=== PATIENT | male | born 1950 | race Caucasian/White ===

== ENCOUNTER 2022-10-14 09:35 | Inpatient (IN) ==
--- NOTE | 2022-10-14 09:53 | Emergency Department Note ---
HPI General Chief complaint: Shortness of Breath/Dyspnea Time Seen by Provider: 10/14/22 09:53 Source: patient and family Mode of arrival: wheelchair Limitations: no limitations History of Present Illness HPI Narrative: Narrative: Patient is a 72-year-old male with a complex history, but importantly history of DVT, CAD, ANJEL, hypertension, hyperlipidemia, and emphysema who presents to the emergency department due to shortness of breath. Patient endorses symptoms for approximately 1 week. He has been treated for infection of unknown location for this period of time. He states that he has had runny nose, productive cough, and nausea. He does endorse some abdominal pain that has worsened during this period of time. He states that this is mostly in the left lower part of his abdomen. He denies radiation of the pain. He denies palliative or provocative factors. He denies fevers, chills, or any other symptoms at this time. Related Data Home Medications Medication Instructions Recorded Confirmed omega [id number] oil 1,000 mg 1 cap PO QDAY 01/10/20 10/14/22 (120 mg-180 mg) capsule (Fish Oil) red yeast rice 600 mg capsule 600 mg PO QDAY 01/10/20 10/14/22 aspirin 81 mg tablet,delayed 81 mg PO QDAY 06/04/21 10/14/22 release spironolactone 25 mg tablet 25 mg PO QDAY 12/30/21 10/14/22 diltiazem HCl 120 mg capsule,24 120 mg PO QDAY 02/17/22 10/14/22 hr,extended release cilostazol 50 mg tablet 50 mg PO BID 10/07/22 10/14/22 acetaminophen 325 mg tablet 650 mg PO Q4H PRN Pain 10/14/22 10/14/22 amiodarone 200 mg tablet 1 tab PO QDAY 10/14/22 10/14/22 diltiazem HCl 30 mg tablet 30 mg PO Q4HP PRN Tachycardia 10/14/22 10/14/22 hydrocodone 10 mg-acetaminophen 1 tab PO Q6H PRN Pain 10/14/22 10/14/22 325 mg tablet ibuprofen 200 mg capsule 800 mg PO Q8H PRN Pain 10/14/22 10/14/22 Previous Rx's Medication Instructions Recorded Nocturnal Oxygen #1 ea 03/17/21 nitroglycerin 0.4 mg sublingual 0.4 mg sublingual Q5-15M PRN chest 01/05/22 tablet pain #25 tabs hydralazine 100 mg tablet 100 mg PO BID #180 tabs 02/17/22 lisinopril 5 mg tablet 5 mg PO QDAY #90 tabs 10/02/22 omeprazole 20 mg capsule,delayed 20 mg PO BID #60 caps 10/02/22 release sulfamethoxazole 800 1 tab PO BID #14 tabs 10/07/22 mg-trimethoprim 160 mg tablet (Bactrim DS) Allergies Allergy/AdvReac Type Severity Reaction Status Date / Time clopidogrel [From Plavix] Allergy Severe Anaphylaxis Verified 10/14/22 07:49 ticagrelor [From Brilinta] Allergy Severe Swelling Verified 10/14/22 20:31 of Lip/Tongue/Throat carbamazepine Allergy Unknown Unknown Verified 10/14/22 07:49 escitalopram Allergy Unknown Unknown Verified 10/14/22 14:06 isosorbide Allergy Unknown Unknown Verified 10/14/22 14:06 lovastatin Allergy Unknown Unknown Verified 10/14/22 14:06 metoclopramide Allergy Unknown Unknown Verified 10/14/22 14:06 rosuvastatin Allergy Unknown Unknown Verified 10/14/22 14:06 simvastatin Allergy Unknown Unknown Verified 10/14/22 14:06 Review of Systems ROS ROS Narrative: Narrative: Constitutional: Denies fever or weakness Eyes: Denies eye pain or vision change ENT ED: Reports rhinorrhea; Denies throat pain or hearing loss Cardiovascular: Denies chest pain, dyspnea on exertion, orthopnea or edema Respiratory: Reports shortness of breath and cough Gastrointestinal: Reports abdominal pain and nausea; Denies vomiting, diarrhea, constipation, hematochezia or melena Genitourinary: Denies dysuria, frequency or hematuria Musculoskeletal: Reports other (Left leg pain); Denies back pain or myalgia Integumentary: Denies rash or lesions Neurological: Denies headache, weakness, numbness, confusion, abnormal gait or dizziness Endocrine: Denies fatigue or polyuria Hematological/Lymphatic: Denies easy bleeding or easy bruising [facility] Narrative Patient History Narrative: Narrative: Medical/Surgical/Family History All Active Problems (Updated 10/16/22 @ 10:39 by Anam He MD) S/P cholecystectomy (Chronic) History of surgery (Chronic) Elevated PSA (Chronic) Hypertension (Chronic) Prostate carcinoma (Chronic ~2004) Gout (Chronic) Hyperlipidemia (Chronic) CAD (coronary artery disease) of bypass graft (Chronic) 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) Skin lesion of face (Chronic) Atherosclerosis (Chronic) Foot pain (Chronic) PVD (peripheral vascular disease) (Chronic) Esophageal reflux (Chronic) PSVT (paroxysmal supraventricular tachycardia) (Chronic) Renovascular hypertension (Chronic) Obesity (Chronic) Myalgia (Chronic) Lactose intolerance (Chronic) Stroke (Chronic ~01/1994) Renal artery stenosis (Chronic) Chronic constipation (Chronic) Tendinitis (Chronic) Erectile dysfunction (Chronic) Myocardial infarction (Chronic ~1991) Bruises easily (Chronic) Bleeds easily (Chronic) Hx of CABG (Chronic) Hx of angioplasty (Chronic) Calcified pleural plaque on chest x-ray (Chronic) Hepatic cyst (Chronic) Atelectasis of both lungs (Chronic) Renal cyst (Chronic) ANJEL (obstructive sleep apnea) (Chronic) Hypoxia (Chronic) Hypersomnia (Chronic) Snoring (Chronic) Witnessed apneic spells (Chronic) Nocturnal hypoxia (Chronic) Right carotid bruit (Chronic) Cervical disc disorder with radiculopathy, high cervical region (Chronic) Obstructive sleep apnea (Chronic) Encounter for long-term (current) use of medications (Chronic) Abdominal pain, RUQ (right upper quadrant) (Chronic) DDD (degenerative disc disease), lumbar (Chronic) Orthostatic hypotension (Chronic) Low back pain (Chronic) Radiculopathy, lumbar region (Chronic) Chronic pain (Chronic) DVT (deep venous thrombosis) (Chronic) Abrasion, left lower leg, initial encounter (Chronic) Prerenal azotemia (Chronic) Other intervertebral disc degeneration, lumbar region (Chronic) Chest pain (Chronic) Frequent PVCs (Chronic) Acute coronary syndrome with high troponin (Chronic) S/P coronary artery stent placement (Chronic) History of left heart catheterization (Chronic 11/02/20) Spondylosis without myelopathy or radiculopathy, lumbar region (Chronic) Spondylosis without myelopathy or radiculopathy, lumbosacral region (Chronic) Medicare annual wellness visit, subsequent (Chronic) Dizziness (Chronic) Chest pain (Chronic) Abdominal pain (Chronic) Left leg pain (Chronic) Sacroiliitis (Chronic) Chronic SI joint pain (Acute) Pneumonia of both lower lobes (Acute) GERD with esophagitis (Acute) Skin tear (Acute) Chronic SI joint pain (Chronic) Bilateral sacroiliitis (Acute) Fatigue (Acute) Nausea (Acute) Cough (Acute) Function kidney decreased (Acute) Peripheral arterial disease (Acute) Constipation (Acute) Sacrococcygeal disorders, not elsewhere classified (Chronic) Myofascial pain syndrome (Chronic) Constipation (Acute) Elevated WBC count (Acute) Bronchitis (Acute) CESILIA (acute kidney injury) (Acute) Hyperkalemia (Acute) Chronic diastolic (congestive) heart failure (Acute) CKD (chronic kidney disease) stage 3, GFR 30-59 ml/min (Acute) [id number] renal failure (Acute) Drug-induced hyperkalemia (Acute) Hyponatremia (Acute) Pulmonary interstitial fibrosis (Acute) CESILIA (acute kidney injury) (Acute) Acute hyperkalemia (Acute) Medical History Abdominal pain Abdominal pain, RUQ (right upper quadrant) Abrasion, left lower leg, initial encounter Acute coronary syndrome with high troponin Atelectasis of both lungs Atherosclerosis Bilateral sacroiliitis Bleeds easily Bruises easily CAD (coronary artery disease) of bypass graft Calcified pleural plaque on chest x-ray Cervical disc disorder with radiculopathy, high cervical region Chest pain Chronic constipation Chronic pain Chronic SI joint pain Chronic SI joint pain DDD (degenerative disc disease), lumbar Dizziness DVT (deep venous thrombosis) Elevated PSA Encounter for long-term (current) use of medications Erectile dysfunction Esophageal reflux Foot pain Frequent PVCs Function kidney decreased Gout Hepatic cyst Hyperlipidemia Hypersomnia Hypertension Hypoxia Lactose intolerance Left leg pain Low back pain Medicare annual wellness visit, subsequent Myalgia Myocardial infarction (~1991) 1991, 1992, 1994, 2004 Myofascial pain syndrome Nocturnal hypoxia Obesity Obstructive sleep apnea Orthostatic hypotension ANJEL (obstructive sleep apnea) Other intervertebral disc degeneration, lumbar region Other assistant terminal manager (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 Prerenal azotemia Prostate carcinoma (~2004) PSVT (paroxysmal supraventricular tachycardia) PVD (peripheral vascular disease) Radiculopathy, lumbar region Renal artery stenosis Renal cyst Renovascular hypertension Right carotid bruit Sacrococcygeal disorders, not elsewhere classified Sacroiliitis Skin lesion of face Snoring Spondylosis without myelopathy or radiculopathy, lumbar region Spondylosis without myelopathy or radiculopathy, lumbosacral region Stroke (~01/1994) 1994 Tendinitis Witnessed apneic spells Surgical History History of esophagogastroduodenoscopy (EGD) (02/05/22) History of left heart catheterization (11/02/20) 11/12/21 History of prostate surgery (~10/2004) radioactive seed implantation, brachytherapy History of quadruple bypass History of renal stent History of surgery heart Hx of angioplasty Hx of CABG 5 heart attacks S/P cholecystectomy S/P coronary artery stent placement Family History Mother , Age 84 Diabetes Hypertension Arthritis Grandmother Diabetes Arthritis maternal Father , Age 77 Hypertension Cancer Metastatic bone cancer Brother Hypertension Cancer Grandfather Hypertension maternal Heart disease maternal Heart attack Maternal. Family/Other Cancer Maternal aunt. Heart attack Maternal aunt. Stroke Maternal aunt. Sister Suicide Social History Smoking Status: Former smoker and Never smoker Alcohol Intake Frequency: does not drink Substance Use: does not use Exam Narrative Narrative: Narrative: General Limitations: no limitations General appearance: Present alert and in no apparent distress; Absent anxious, appears intoxicated or sleepy Head Head: Present atraumatic and normocephalic Eye Eye: Present PERRL, EOMI and visual valenzuela intact; Absent scleral icterus or nystagmus ENT ENT: Present mucous membranes moist; Absent nasal congestion Neck Neck: Present full ROM; Absent tenderness Chest Chest: Present normal inspection and symmetric chest wall rise; Absent t enderness Respiratory Respiratory: Present normal lung sounds bilaterally; Absent respiratory distress, rales/crackles, wheezes, stridor or accessory muscle use Cardiovascular Cardiovascular: Present regular rate, normal rhythm and normal heart sounds Adbominal Abdominal: Present soft, tenderness and normal bowel sounds; Absent distention, guarding, rebound or rigidity Extremities Extremities: Present normal inspection, full ROM, tenderness, pedal edema, pretibial edema and calf tenderness Back Back: Present normal inspection and full ROM Neurological Neurological: Present alert and oriented X3 Psychiatric Psychiatric: Present normal affect and normal mood Skin Skin: Present warm (WNL), dry and normal color Course Vital Signs Vital signs: Vital Signs Temperature 96.2 F L 10/14/22 09:36 Pulse Rate 78 10/14/22 09:36 Respiratory Rate 20 10/14/22 09:36 Blood Pressure 110/52 10/14/22 09:36 Pulse Oximetry (%) 98 10/14/22 09:36 Oxygen Delivery Method 10/14/22 09:36 Temperature 98.1 F 10/16/22 08:02 Pulse Rate 86 10/16/22 10:01 Respiratory Rate 20 10/16/22 08:23 Blood Pressure 117/55 10/16/22 10:01 Pulse Oximetry (%) 93 10/16/22 10:01 Oxygen Delivery Method 10/16/22 10:01 [facility] MDM Narrative Medical decision making narrative: Narrative: Patient is a 72-year-old male with a complex history, but importantly history of DVT, CAD, ANJEL, hypertension, hyperlipidemia, and emphysema who presents to the emergency department due to shortness of breath. Differential diagnoses include exacerbation of lung disease, ACS, pneumonia, infection elsewhere including in the abdomen given his abdominal pain, DVT and PE, pancreatitis, and urinary tract infection. Patient's DVT ultrasound did demonstrate short segment thrombosis in the posterior tibial vein below the knee in the mid calf. Influenza/COVID swab was negative. Patient's CT scan demonstrates new pulmonary fibrosis. Labs are concerning for a creatinine of 3.8 with a previous of 1.8-2 and elevated potassium of 5.2. Patient's EKG is reassuring. Given patient's significant elevation in creatinine he has received fluids, but I have also spoken to Dr. Liu. He recommended discontinuation of lisinopril and Bactrim. I then spoke to Dr. Martinez who agreed to see and evaluate patient for admission. Lab Data Result diagrams: 10/15/22 10:57 10/16/22 05:12 Labs: Lab Results 10/14/22 10/14/22 10/14/22 Range/Units 09:51 09:53 09:54 WBC (4.5-11.0) K/mcL RBC (4.63-6.08) M/mcL Hgb (13.7-17.5) g/dL Hct (40.1-51.0) % POC Hct 35.0 L (41-55) MCV (80.0-100.0) fL MCH (26.0-34.0) pg MCHC (31.0-36.0) g/dL RDW (11.5-14.5) % Plt Count (140-440) K/mcL MPV (8.8-12.5) fL Immature Gran % (Auto) (0.0-0.5) % Neut % (Auto) (38.0-78.0) % Lymph % (Auto) (15.5-49.0) % [place] % (Auto) (1.0-12.0) % Eos % (Auto) (0.0-7.0) % Baso % (Auto) (0.0-2.0) % Lymph # (Auto) (1.50-4.80) K/mcL [place] # (Auto) (0.10-0.90) K/mcL Eos # (Auto) (0.00-0.70) K/mcL Baso # (Auto) (0.00-0.30) K/mcL Immature Gran # (0.00-0.05) K/mcl Absolute Neutrophils (1.80-8.00) K/mcL POC Sodium 129 L (133-145) POC Potassium 6.0 H* (3.3-5.1) Potassium TNP POC Chloride 102 (96-108) POC Total CO2 24.0 (22-30) POC BUN 55 H (6-20) POC Creatinine 3.8 H (0.6-1.2) POC Glucose 134 H (70-105) POC WB Ioniz Calcium 1.17 (1.16-1.32) Total Bilirubin (0.1-1.0) mg/dL Direct Bilirubin (0-0.3) mg/dL AST (<40) U/L ALT (<40) U/L Alkaline Phosphatase (39-117) U/L NT-Pro-B Natriuret Pep (<125.0) pg/mL Total Protein (5.9-8.4) gm/dL Albumin (3.2-5.2) gm/dL Globulin (2.2-3.7) gm/dL Lipase (7-60) U/L POC Troponin I 0.03 (0.00-0.08) 10/14/22 10/14/22 10/14/22 Range/Units 10:03 11:22 13:14 WBC 10.2 (4.5-11.0) K/mcL RBC 3.92 L (4.63-6.08) M/mcL Hgb 11.4 L (13.7-17.5) g/dL Hct 35.1 L (40.1-51.0) % POC Hct (41-55) MCV 89.5 (80.0-100.0) fL MCH 29.1 (26.0-34.0) pg MCHC 32.5 (31.0-36.0) g/dL RDW 12.7 (11.5-14.5) % Plt Count 380 (140-440) K/mcL MPV 9.7 (8.8-12.5) fL Immature Gran % (Auto) 0.5 (0.0-0.5) % Neut % (Auto) 60.9 (38.0-78.0) % Lymph % (Auto) 24.9 (15.5-49.0) % [place] % (Auto) 9.7 (1.0-12.0) % Eos % (Auto) 3.3 (0.0-7.0) % Baso % (Auto) 0.7 (0.0-2.0) % Lymph # (Auto) 2.54 (1.50-4.80) K/mcL [place] # (Auto) 0.99 H (0.10-0.90) K/mcL Eos # (Auto) 0.34 (0.00-0.70) K/mcL Baso # (Auto) 0.07 (0.00-0.30) K/mcL Immature Gran # 0.05 (0.00-0.05) K/mcl Absolute Neutrophils 6.21 (1.80-8.00) K/mcL POC Sodium (133-145) POC Potassium (3.3-5.1) Potassium 5.2 H POC Chloride (96-108) POC Total CO2 (22-30) POC BUN (6-20) POC Creatinine (0.6-1.2) POC Glucose (70-105) POC WB Ioniz Calcium (1.16-1.32) Total Bilirubin 0.3 (0.1-1.0) mg/dL Direct Bilirubin < 0.2 (0-0.3) mg/dL AST 16 (<40) U/L ALT 10 (<40) U/L Alkaline Phosphatase 78 (39-117) U/L NT-Pro-B Natriuret Pep 1168.0 H 1309.0 H (<125.0) pg/mL Total Protein 6.0 (5.9-8.4) gm/dL Albumin 3.7 (3.2-5.2) gm/dL Globulin 2.3 (2.2-3.7) gm/dL Lipase 12 (7-60) U/L POC Troponin I (0.00-0.08) ED POC Tests ED POC Tests: TRISTIN - Influenza A Negative TRISTIN - Influenza B Negative TRISTIN - SARS Antigen Negative EKG Data EKG #1: EKG attestation: Yes I reviewed and interpreted this EKG. EKG results narrative: Normal sinus rhythm with a rate of 83, borderline right axis, DC of 80, QRS of 175, QTC of 596, T wave flattening in aVF, and absence of ST elevation or depression. Discharge Plan Patient/Caregiver Discharge Instructions Pt seen by CLOUD INFRASTRUCTURE ARCHITECT/PA only: No Clinical Impression: CESILIA (acute kidney injury), Acute hyperkalemia Patient Disposition: Xfer As Inpt ([facility]) Discharge Date/Time: 10/14/22 14:40
[2022-10-14 09:58] LABS: POC Calcium, Ionized 1.17 (1.16-1.32); POC Creatinine 3.8 (0.6-1.2)
--- NOTE | 2022-10-14 10:29 | XRay Report ---
HISTORY: Dyspnea FINDINGS: Patient has mild pulmonary fibrosis in both lung bases. There is a thin linear scar in the lingula. The mid and upper lung valenzuela are clear. Lung volumes are normal, without evidence of air trapping. There is no pneumonia, mass or congestive heart failure. The heart size is normal. There has been a prior sternotomy and coronary bypass surgery. Comparison with the prior chest x-ray on 12/15/[address] on 09/27/21 shows no significant change. IMPRESSION: Mild pulmonary fibrosis and no acute abnormality Interpreted and Authenticated by: Jose L Lawton 10/14/22
[2022-10-14 10:36] LABS: Basophils # (Auto) 0.07 K/mcL (0.00-0.30); Basophils % (Auto) 0.7 % (0.0-2.0); Eosinophils # (Auto) 0.34 K/mcL (0.00-0.70); Eosinophils % (Auto) 3.3 % (0.0-7.0); Hematocrit 35.1 % (40.1-51.0); Hemoglobin 11.4 g/dL (13.7-17.5); Lymphocytes # (Auto) 2.54 K/mcL (1.50-4.80); Lymphocytes % (Auto) 24.9 % (15.5-49.0); Mean Cell Volume 89.5 fL (80.0-100.0); Mean Corpuscular HGB Conc 32.5 g/dL (31.0-36.0); Mean Platelet Volume 9.7 fL (8.8-12.5); Monocytes # (Auto) 0.99 K/mcL (0.10-0.90); Monocytes % (Auto) 9.7 % (1.0-12.0); Neutrophils % (Auto) 60.9 % (38.0-78.0); Platelet Count 380 K/mcL (140-440); RBC 3.92 M/mcL (4.63-6.08); Red Cell Distribution Width 12.7 % (11.5-14.5); WBC 10.2 K/mcL (4.5-11.0)
--- NOTE | 2022-10-14 11:28 | Cat Scan Report ---
History: Short of breath, left lower quadrant pain and tenderness, prostate cancer, prior coronary bypass surgery TECHNIQUE: The patient was imaged without contrast in axial plane at 2.5 mm intervals from above the thoracic inlet through the symphysis pubis. Sagittal and coronal reformats were created along with axial MIPS images of the chest. Radiation exposure was limited using dose reduction technology. FINDINGS: CHEST: Patient has developed pulmonary fibrosis throughout both lungs with the greatest involvement in the lower lobes. This is a new finding since 04/08/20. There is mild honeycombing in a subpleural distribution. Small zone of groundglass alveolar opacification is present in the posterior basal segment left lower lobe. There is no lobar consolidation. There are several small granulomata, many of them are calcified. These were seen on the prior CT. There is no evidence of a lung mass. The trachea and bronchi are normal without evidence of bronchiectasis or bronchial wall thickening. There is been a prior sternotomy with coronary bypass surgery. Heart size is within upper limits of normal. No pleural effusions present. There are no abnormally enlarged lymph nodes. Abdomen and pelvis: There are multiple cysts throughout the liver. The largest is located posteriorly in segment five. This extends exophytically and presses upon the right kidney. It measures 10 x 11 cm. There are couple small calcifications along the wall of this dominant cyst. The other cysts are simple cysts with no calcifications or mural nodules. The cysts are chronic stable finding with little growth since 04/08/20. The spleen is normal in size and homogeneous. There is an accessory spleen in the hilar region. No abnormality seen within the pancreas. The adrenals are normal. There are multiple cysts in both kidneys, left greater than right. There is an exophytic well-circumscribed 3.5 x 3.8 cm mass arising from the upper pole the right kidney. It has a density of 38 Hounsfield units. This has not enlarged since the prior CT on 04/08/20 and is probably a complex cyst containing proteinaceous debris. No new or suspicious mass of developed in either kidney. There is loss of renal parenchyma bilaterally, left greater than right. Nonobstructing 5 mm calculus is present posteriorly in the middle third of left kidney. No hydronephrosis is present. There is a stent in the left renal artery and a large amount calcified plaque at the origin of the right renal artery. Severe atherosclerotic disease is present throughout the abdomen or pelvis. The aorta is normal in caliber with no aneurysm. There is a large amount of fecal material throughout the large intestine. The bowel is not abnormally dilated. Small intestine is normal in caliber and noninflamed. There are fiducial markers in the prostate following prior radiation therapy. Prostate is normal in size and there is no discrete mass. There are couple calcifications in the transitional zone. Seminal vesicles are atrophic. Urinary bladder is decompressed and grossly normal. Bone windows show no lytic or blastic metastasis. There is arthritis at multiple levels in the thoracic and lumbar spine. IMPRESSION: 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 This may be due to UIP (usual interstitial pneumonia) or collagen vascular disease. Old granulomatous disease. No evidence of pneumonia or lung mass Stable hepatic and renal cysts No acute abnormality in the abdomen or pelvis No evidence of metastasis of the patient's prostate cancer Interpreted and Authenticated by: Jose L Lawton 10/14/22
--- NOTE | 2022-10-14 11:45 | Ultrasound Report ---
History: Left lower leg pain and swelling findings: There is normal augmentation and compressibility of the deep veins from the groin through the popliteal fossa. The greater saphenous vein is patent. There is a short segment thrombosis of one of the two paired posterior tibial veins in the mid calf. The remainder of this vessel is clear. The adjacent posterior tibial vein is normal. The peroneal veins are normal. In the popliteal fossa there is a 1.4 x 4.1 x 4.4 cm Corona cyst. This is noninflamed. IMPRESSION: Short segment thrombosis of one of two paired posterior tibial veins in the mid calf. No evidence of thrombosis at or above the level of the knee. Interpreted and Authenticated by: Jose L Lawton 10/14/22
[2022-10-14 12:23] LABS: ALT/SGPT 10 U/L (<40); AST/SGOT 16 U/L (<40); Albumin 3.7 gm/dL (3.2-5.2); Alkaline Phosphatase 78 U/L (39-117); Bilirubin,Direct < 0.2 mg/dL (0-0.3); Bilirubin,Total 0.3 mg/dL (0.1-1.0); Globulin 2.3 gm/dL (2.2-3.7)
[2022-10-14] MEDS ORDERED: 0.9 % SODIUM CHLORIDE 1,000 ML IV ONE (12:43)
[2022-10-14] MEDS ORDERED: HYDROCODONE/APAP 7.5/325MG TABLET PO ONE (13:07)
[2022-10-14] MEDS ORDERED: DILTIAZEM 30 MG TABLET PO PRN (13:48)
[2022-10-14] MEDS ORDERED: ONDANSETRON 4 MG/2 ML VIAL IV PRN (14:47)
[2022-10-14] MEDS ORDERED: SENNOSIDES 1 TABLET PO PRN (14:47)
[2022-10-14] MEDS ORDERED: ACETAMINOPHEN 325 MG TABLET PO PRN (14:47)
[2022-10-14] MEDS ORDERED: FUROSEMIDE 40 MG/4 ML VIAL IV ONE (14:47)
--- NOTE | 2022-10-14 15:26 | Internal Med History&Physical ---
HPI History of Present Illness Patient information: Note initiated : 10/14/22 at 3:19 pm Service Date, if different from initiated Date: [] Patient: Wilbert Gregg a 72 y/o M admitted on 10/14/22 for n/a. Chief Complaint: [SOB] Chief complaint: Dyspnea History of present illness: Mr. Gregg is a 72 year old M w/ a complex PMHx significant for chronic AF, CAD, HFpEF, CVA, COPD and lumbar radiculopathy s/p fusion who presents to the hospital w/ progressive dyspnea. The patient states that he was seen twice by [facility]MISS[facility] RN at urgent care/clinic last week. First time, he was dx with UTI and prescribed bactrim. The 2nd time, he was diagnosed with bronchitis. The patient was seen by his manufacturing worker recently as well. He states that normally he is able to walk about 4 miles, and lately he was very SOB after 2 miles. He states his weight has come down from 220lbs to 206lbs. He denies fevers, chills, or any sick contacts. On arrival the patient was HD stable and afebrile. His labs were concerning for CESILIA with Cr of 3.6, K of 6.0. His CT chest also revealed diffuse GGOs. Venous duplex revealed below the knee DVT. The patient was not requiring supplemental O2. Nephrology was contacted. The hospitalist service was asked to admit the patient for further mx and evaluation. Review of Systems All systems: reviewed and no additional remarkable complaints except as stated Constitutional Constitutional: Present as per HPI EENT Eyes: Present as per HPI; Absent blurry vision Cardiovascular Cardiovascular: Present as per HPI; Absent chest pain, dyspnea, dyspnea on exertion, leg edema or palpatations Respiratory Respiratory: Present as per HPI; Absent cough, dyspnea, dyspnea on exertion, wheezing or stridor Gastrointestinal Gastrointestinal: Present as per HPI; Absent abdominal pain, diarrhea, dysphagia, hematemesis, melena, nausea or vomiting Musculoskeletal Musculoskeletal: Present as per HPI; Absent joint swelling, limited range of motion, muscle cramps, muscle weakness or myalgias Integumentary Integumentary: Present as per HPI; Absent erythema, new lesions, rash or wounds Neurological Neurological: Present as per HPI; Absent abnormal gait, behavioral changes, focal weakness, headache(s), loss of vision, numbness, sensory deficit or syncope Endocrine Endocrine: Absent change in body appearance, fatigue or heat intolerance Hematologic/Lymphatic Hematologic/Lymphatic: Present as per HPI PFSH PFSH All Active Problems Chronic diastolic (congestive) heart failure (Acute) Hyperkalemia (Acute) CESILIA (acute kidney injury) (Acute) Bronchitis (Acute) Elevated WBC count (Acute) Constipation (Acute) Myofascial pain syndrome (Chronic) Sacrococcygeal disorders, not elsewhere classified (Chronic) Hepatic cyst (Chronic) Spondylosis without myelopathy or radiculopathy, lumbosacral region (Chronic) Peripheral arterial disease (Acute) Constipation (Acute) Function kidney decreased (Acute) Cough (Acute) Nausea (Acute) Fatigue (Acute) Bilateral sacroiliitis (Acute) Chronic SI joint pain (Chronic) Skin tear (Acute) GERD with esophagitis (Acute) Pneumonia of both lower lobes (Acute) Chronic SI joint pain (Acute) Sacroiliitis (Chronic) Left leg pain (Chronic) Orthostatic hypotension (Chronic) DVT (deep venous thrombosis) (Chronic) Abrasion, left lower leg, initial encounter (Chronic) Chest pain (Chronic) Frequent PVCs (Chronic) Prerenal azotemia (Chronic) S/P coronary artery stent placement (Chronic) Acute coronary syndrome with high troponin (Chronic) Spondylosis without myelopathy or radiculopathy, lumbar region (Chronic) Medicare annual wellness visit, subsequent (Chronic) Dizziness (Chronic) Abdominal pain (Chronic) Chest pain (Chronic) Hypertension (Chronic) Encounter for long-term (current) use of medications (Chronic) Other intervertebral disc degeneration, lumbar region (Chronic) History of left heart catheterization (Chronic 11/02/20) Chronic pain (Chronic) Radiculopathy, lumbar region (Chronic) Low back pain (Chronic) DDD (degenerative disc disease), lumbar (Chronic) Abdominal pain, RUQ (right upper quadrant) (Chronic) Obstructive sleep apnea (Chronic) Cervical disc disorder with radiculopathy, high cervical region (Chronic) Right carotid bruit (Chronic) Nocturnal hypoxia (Chronic) Witnessed apneic spells (Chronic) Snoring (Chronic) Hypersomnia (Chronic) Hypoxia (Chronic) ANJEL (obstructive sleep apnea) (Chronic) Renal cyst (Chronic) Atelectasis of both lungs (Chronic) Calcified pleural plaque on chest x-ray (Chronic) Hx of angioplasty (Chronic) Hx of CABG (Chronic) Bleeds easily (Chronic) Bruises easily (Chronic) Myocardial infarction (Chronic ~1991) Erectile dysfunction (Chronic) Tendinitis (Chronic) Chronic constipation (Chronic) Renal artery stenosis (Chronic) Stroke (Chronic ~01/1994) Lactose intolerance (Chronic) Myalgia (Chronic) Obesity (Chronic) Renovascular hypertension (Chronic) PSVT (paroxysmal supraventricular tachycardia) (Chronic) Esophageal reflux (Chronic) PVD (peripheral vascular disease) (Chronic) Foot pain (Chronic) Atherosclerosis (Chronic) Skin lesion of face (Chronic) 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 terminal supervisor (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 (Chronic) CAD (coronary artery disease) of bypass graft (Chronic) Hyperlipidemia (Chronic) Gout (Chronic) Prostate carcinoma (Chronic ~2004) Elevated PSA (Chronic) History of surgery (Chronic) S/P cholecystectomy (Chronic) Medical History Abdominal pain Abdominal pain, RUQ (right upper quadrant) Abrasion, left lower leg, initial encounter Acute coronary syndrome with high troponin Atelectasis of both lungs Atherosclerosis Bilateral sacroiliitis Bleeds easily Bruises easily CAD (coronary artery disease) of bypass graft Calcified pleural plaque on chest x-ray Cervical disc disorder with radiculopathy, high cervical region Chest pain Chronic constipation Chronic pain Chronic SI joint pain Chronic SI joint pain DDD (degenerative disc disease), lumbar Dizziness DVT (deep venous thrombosis) Elevated PSA Encounter for long-term (current) use of medications Erectile dysfunction Esophageal reflux Foot pain Frequent PVCs Function kidney decreased Gout Hepatic cyst Hyperlipidemia Hypersomnia Hypertension Hypoxia Lactose intolerance Left leg pain Low back pain Medicare annual wellness visit, subsequent Myalgia Myocardial infarction (~1991) 1991, 1992, 1994, 2004 Myofascial pain syndrome Nocturnal hypoxia Obesity Obstructive sleep apnea Orthostatic hypotension ANJEL (obstructive sleep apnea) Other intervertebral disc degeneration, lumbar region Other terminal supervisor (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 Prerenal azotemia Prostate carcinoma (~2004) PSVT (paroxysmal supraventricular tachycardia) PVD (peripheral vascular disease) Radiculopathy, lumbar region Renal artery stenosis Renal cyst Renovascular hypertension Right carotid bruit Sacrococcygeal disorders, not elsewhere classified Sacroiliitis Skin lesion of face Snoring Spondylosis without myelopathy or radiculopathy, lumbar region Spondylosis without myelopathy or radiculopathy, lumbosacral region Stroke (~01/1994) 1994 Tendinitis Witnessed apneic spells Surgical History History of esophagogastroduodenoscopy (EGD) (02/05/22) History of left heart catheterization (11/02/20) 11/12/21 History of prostate surgery (~10/2004) radioactive seed implantation, brachytherapy History of quadruple bypass History of renal stent History of surgery heart Hx of angioplasty Hx of CABG 5 heart attacks S/P cholecystectomy S/P coronary artery stent placement Family History Mother , Age 84 Diabetes Hypertension Arthritis Grandmother Diabetes Arthritis maternal Father , Age 77 Hypertension Cancer Metastatic bone cancer Brother Hypertension Cancer Grandfather Hypertension maternal Heart disease maternal Heart attack Maternal. Family/Other Cancer Maternal aunt. Heart attack Maternal aunt. Stroke Maternal aunt. 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 physical activity: walking frequency: 3-4 times per week smoking status: Former smoker and Never smoker smoking status start date: 10/04/08 smoking status stop date: 08/31/96 alcohol intake frequency: does not drink substance use type: does not use seatbelt use: always MEDS/ALLERGIES Home Medications and Allergies Home Medications Medication Instructions Recorded Confirmed Type omega 6-ggv-owd-fish oil 1,000 mg 1 cap PO QDAY 01/10/20 10/14/22 History (120 mg-180 mg) capsule (Fish Oil) red yeast rice 600 mg capsule 600 mg PO QDAY 01/10/20 10/14/22 History Nocturnal Oxygen #1 ea 12/18/20 10/14/22 Rx aspirin 81 mg tablet,delayed 81 mg PO QDAY 06/04/21 10/14/22 History release spironolactone 25 mg tablet 25 mg PO QDAY 12/30/21 10/14/22 History nitroglycerin 0.4 mg sublingual 0.4 mg sublingual Q5-15M PRN chest 01/05/22 10/14/22 Rx tablet pain #25 tabs diltiazem HCl 120 mg capsule,24 120 mg PO QDAY 02/17/22 10/14/22 History hr,extended release hydralazine 100 mg tablet 100 mg PO BID #180 tabs 02/17/22 10/14/22 Rx lisinopril 5 mg tablet 5 mg PO QDAY #90 tabs 10/02/22 10/14/22 Rx omeprazole 20 mg capsule,delayed 20 mg PO BID #60 caps 10/02/22 10/14/22 Rx release cilostazol 50 mg tablet 50 mg PO BID 10/07/22 10/14/22 History sulfamethoxazole 800 1 tab PO BID #14 tabs 10/07/22 10/14/22 Rx mg-trimethoprim 160 mg tablet (Bactrim DS) amiodarone 200 mg tablet 1 tab PO QDAY 10/14/22 10/14/22 History diltiazem HCl 30 mg tablet 30 mg PO PRN PRN chest pain 10/14/22 10/14/22 History hydrocodone 10 mg-acetaminophen 1 tab PO Q6H PRN Pain 10/14/22 10/14/22 History 325 mg tablet Allergies Allergy/AdvReac Type Severity Reaction Status Date / Time clopidogrel [From Plavix] Allergy Severe Anaphylaxis Verified 10/14/22 07:49 carbamazepine Allergy Unknown Unknown Verified 10/14/22 07:49 escitalopram Allergy Unknown Unknown Verified 10/14/22 14:06 isosorbide Allergy Unknown Unknown Verified 10/14/22 14:06 lovastatin Allergy Unknown Unknown Verified 10/14/22 14:06 metoclopramide Allergy Unknown Unknown Verified 10/14/22 14:06 rosuvastatin Allergy Unknown Unknown Verified 10/14/22 14:06 simvastatin Allergy Unknown Unknown Verified 10/14/22 14:06 EXAM Constitutional Vitals: Temp Pulse Resp BP Pulse Ox O2 Del Method 96.2 F L 69 24 H 145/58 99 10/14/22 14:46 10/14/22 14:46 10/14/22 14:46 10/14/22 14:46 10/14/22 14:46 10/14/22 09:36 General appearance: average body habitus Head Head exam: Present atraumatic, normal inspection and normocephalic Eye Eye exam: Present EOMI, normal appearance and PERRL; Absent conjunctival inject ion ENT ENT exam: Present normal exam; Absent mucous membranes dry Neck Neck exam: Present full ROM; Absent lymphadenopathy Respiratory Respiratory exam: Present normal respiratory exam and CTAB; Absent decreased breath sounds, respiratory distress or wheezes Cardiovascular Cardiovascular exam: Present normal rate and rhythm and RRR; Absent JVD GI/Abdominal GI/Abdominal exam: Present normal bowel sounds and soft; Absent diminished bowel sounds, distended, guarding, mass, rebound or tenderness Neurological Exam Neurological exam: Present alert, CN II-XII intact and oriented X3 Psychiatric Psychiatric exam: Present normal affect and normal mood Skin Skin exam: Present intact and warm; Absent erythema, pallor, petechiae or rash DATA Data Completed and Pending Labs: Labs from last 24 hours 10/14/22 10/14/22 10/14/22 13:14 11:22 10:03 WBC 10.2 RBC 3.92 L Hgb 11.4 L Hct 35.1 L POC Hct MCV 89.5 MCH 29.1 MCHC 32.5 RDW 12.7 Plt Count 380 MPV 9.7 Immature Gran % (Auto) 0.5 Neut % (Auto) 60.9 Lymph % (Auto) 24.9 Custer % (Auto) 9.7 Eos % (Auto) 3.3 Baso % (Auto) 0.7 Lymph # (Auto) 2.54 [place] # (Auto) 0.99 H Eos # (Auto) 0.34 Baso # (Auto) 0.07 Immature Gran # 0.05 Absolute Neutrophils 6.21 POC Sodium POC Potassium Potassium 5.2 H POC Chloride POC Total CO2 POC BUN POC Creatinine POC Glucose POC WB Ioniz Calcium Total Bilirubin 0.3 Direct Bilirubin < 0.2 AST 16 ALT 10 Alkaline Phosphatase 78 NT-Pro-B Natriuret Pep 1309.0 H 1168.0 H Total Protein 6.0 Albumin 3.7 Globulin 2.3 Lipase 12 POC Troponin I 10/14/22 10/14/22 10/14/22 09:54 09:53 09:51 WBC RBC Hgb Hct POC Hct 35.0 L MCV MCH MCHC RDW Plt Count MPV Immature Gran % (Auto) Neut % (Auto) Lymph % (Auto) [place] % (Auto) Eos % (Auto) Baso % (Auto) Lymph # (Auto) [place] # (Auto) Eos # (Auto) Baso # (Auto) Immature Gran # Absolute Neutrophils POC Sodium 129 L POC Potassium 6.0 H* Potassium TNP POC Chloride 102 POC Total CO2 24.0 POC BUN 55 H POC Creatinine 3.8 H POC Glucose 134 H POC WB Ioniz Calcium 1.17 Total Bilirubin Direct Bilirubin AST ALT Alkaline Phosphatase NT-Pro-B Natriuret Pep Total Protein Albumin Globulin Lipase POC Troponin I 0.03 A/P Assessment and plan (1) DVT (deep venous thrombosis): Status: Chronic Qualifiers: DVT location: lower extremity Affected thrombotic vein of extremity: popliteal Chronicity: acute Laterality: right Qualified Code(s): I82.431 - Acute embolism and thrombosis of right popliteal vein (2) ANJEL (obstructive sleep apnea): Status: Chronic (3) CAD (coronary artery disease) of bypass graft: Status: Chronic (4) CESILIA (acute kidney injury): Status: Acute (5) Hyperkalemia: Status: Acute (6) Chronic diastolic (congestive) heart failure: Status: Acute Narrative A/P Narrative: #Ground glass opacities -DDx: vasculitis vs pulmonary edema vs ILD/pulmonary fibrosis vs drug induced -Investigations: CT revealed 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 This may be due to UIP (usual interstitial pneumonia) or collagen vascular disease -Tx: would recommend holding amiodarone, trial duonebs/pulmicort + solu-medrol #HFpEF -The patient's volume status is difficult to assess given body habitus, but there may be component of CHF exacerbation given elevated JVD of 16cm -Will repeat TTE -Tx: trial lasix 40mg IV x 1 #CESILIA -multifactorial in etiology-> recent bactrim use, lisinopril, aldactone + ?cardiorenal syndrome -Will trial lasix as above -Hold nephrotoxic agents, renally dose meds #Below the knee DVT -Literature does not support anticoagulation, continue conservative tx #HyperK -Will continue to monitor -Continue telemetry #CAD -Continue ASA, patient is on red yeast extract instead of statin Time Spent With Patient Time: Total time spent is greater than 50% in coordination of care (as documented) at patient's floor/unit and/or counseling patient: Initial: Total time with patient: 75 - 90 minutes
[2022-10-14] MEDS: methylPREDNISolone SOD SUCC 125 MG/2 ML VIAL IV SCH ×2 (15:31→22:04)
[2022-10-14] MEDS: 0.9 % SODIUM CHLORIDE 10 ML SYRINGE IV SCH ×3 (15:31→22:04)
[2022-10-14] MEDS: morphine 4 MG/ML VIAL IV PRN ×2 (15:56→20:15)
--- NOTE | 2022-10-14 16:11 | EKG ---
[facility] Test Date: 2022-10-14 Pat Name: Wilbert Gregg Department: ED Room: Gender: Male Nurse Emergency: KIARRA : 1950 Requested By: Anam He Order Number: [id number] Reading MD: Carmel Mckeon D.O. Measurements Intervals [place] Rate: 83 P: 0 MT: 80 QRS: 81 QRSD: 175 T: 30 QT: 507 QTc: 596 Interpretive Statements Sinus rhythm Prolonged MT interval Right bundle branch block Inferior infarct, old Electronically Signed On 10-14-2022 16:11:29 PST by Carmel Mckeon D.O. /store/[email or web address]/[id number]
[2022-10-14 17:37] LABS: Blood Urea Nitrogen 46 mg/dL (8-23); Calcium 9.4 mg/dL (8.6-10.4); Carbon Dioxide 22 mmol/L (22-30); Chloride 98 mmol/L (96-108); Glomerular Filtration Rate 20; Glucose 99 mg/dL (70-105)
[2022-10-14] MEDS: oxyCODONE/APAP 5/325MG TABLET PO PRN ×2 (17:46→22:16)
--- NOTE | 2022-10-14 19:18 | Nephrology Consult Note ---
HPI Date of Consult Consult Date: 10/14/22 Requesting physician: Thomas Martinez Primary Care Provider: Liu Roach MD Consult Narrative Patient Information: Note initiated : 10/14/22 at 7:10 pm Service Date, if different from initiated Date: [] Patient: Wilbert Gregg 72 y/o M admitted on 10/14/22 for n/a. Chief Complaint: [] cc:: CC: Thomas Martinez MD I was called by ED physician to evaluate and manage renal failure and hyperkalemia. 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 He has a history of prostate Ca treated by Rad Rx as his cardiac status would no t permit surgical treatment. His creatinine has run between 1.5 and 2 mg/dl over the past 6 yrs. He has undergone Left ISABELLE stenting and there is calcified plaque in the right renal artery origin, renal cysts and no hydronephrosis on today's CT He presented after weeks of BYRD, SOB, cough and was recently recently restarted on amiodarone which was stopped due to dizziness. Out of concern for PNA, he was started recently on TMP/SMX. At the same time, he was treated with a RAASI and spironolactone. Out of concern for a PE, the patient had a LE doppler that was positive for small clot below the knee. While I would have a patient with a fib to be on anticoagulation, and he reports prior DVT for which he was on apixaban, so I suspecion that there was a problem with chronic NOAC therapy. 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 Finally, the chest CT demonstrates the development of honeycombing interstitial pulmonary fibrosis as well as ground glass opacities. Recent Cardiology Note (Oct 2022) Recent Med additions 10/09/2022 Serum Creatinine Serum Potassium Vital Signs Temp Pulse Pulse Resp BP BP Pulse Ox 10/14/22 18:01 80 146/53 93 10/14/22 17:46 78 143/49 92 10/14/22 17:31 78 138/43 97 10/14/22 17:16 81 145/46 94 10/14/22 17:01 86 154/76 93 10/14/22 16:47 78 144/57 94 10/14/22 16:16 76 33 H 134/54 94 10/14/22 14:40 36.3 C 76 18 155/58 100 10/14/22 16:01 36.3 C 68 19 138/39 98 10/14/22 15:46 68 24 H 132/42 98 10/14/22 15:31 67 19 136/51 97 10/14/22 15:25 69 25 H 100 10/14/22 15:16 68 21 149/48 99 10/14/22 14:54 36.3 C 70 26 H 155/58 98 10/14/22 14:01 69 24 H 145/58 99 10/14/22 13:56 69 24 H 133/59 100 10/14/22 14:46 35.7 C L 69 24 H 145/58 99 10/14/22 13:41 22 143/39 10/14/22 12:41 73 17 114/41 97 10/14/22 12:34 76 16 97 10/14/22 12:01 73 25 H 102/43 97 10/14/22 11:41 74 19 124/44 99 10/14/22 11:34 75 21 125/46 98 10/14/22 10:32 21 137/62 10/14/22 10:23 77 17 109/62 100 10/14/22 10:15 77 24 H 121/100 100 10/14/22 10:01 78 24 H 123/42 99 10/14/22 09:59 79 19 128/46 99 10/14/22 09:36 35.7 C L 78 20 110/52 98 10/15/22 03:59 Weight 96.[address] 10/14/2022 Date of Service:10/14/22 Procedure(s):US venous duplex LE LT History: Left lower leg pain and swelling findings: There is normal augmentation and compressibility of the deep veins from the groin through the popliteal fossa. The greater saphenous vein is patent. There is a short segment thrombosis of one of the two paired posterior tibial veins in the mid calf. The remainder of this vessel is clear. The adjacent posterior tibial vein is normal. The peroneal veins are normal. In the popliteal fossa there is a 1.4 x 4.1 x 4.4 cm Corona cyst. This is noninflamed. IMPRESSION: Short segment thrombosis of one of two paired posterior tibial veins in the mid calf. No evidence of thrombosis at or above the level of the knee. Summary: The patient has underlying CKD G3/G4 in the setting of ASCAD, renov ascular disease, CHF with rLVEF and was on a combination of low dose lisinopril and spironolactone. Deterioration in GFR and the development of hyperkalemia is expected with the addition of TMP/SMX as is the likely explanation for his renal and potassium abnormalities. Add to this is the use of prn Advil which would added to rapid decine in GFR and elevated K. Hyponatremia would occur in the setting of CHF and the increased water intake, common recommendations with Bactrin on the package insert and the diuretic spironolactone. I seriously doubt his SOB is due to pulmonary emboli given the new CT findings of fibrosis and GGO and the minute DVT in a calf vein of the left leg As for pulmonary fibrosis, amiodarone is high on my list and I would stop it. If there is evidence of inflammation by biomarkers or better GA scan, steroids would be indicated. The ground glass opacities represent any atypical pneumonia, albeit atypical PNA or viral (including DOLORES CV 2). Review of Systems All systems: reviewed and no additional remarkable complaints except as stated Constitutional Constitutional: Present frequent falls and weakness EENT Eyes: Present as per HPI Cardiovascular Cardiovascular: Present dyspnea on exertion, edema, irregular heart rhythm, lightheadedness, orthopnea and paroxysmal nocturnal dyspnea Respiratory Respiratory: Present cough and dyspnea Gastrointestinal Gastrointestinal: Present as per HPI Musculoskeletal Musculoskeletal: Present atrophy, back pain and radiating pain into limb Integumentary Additional comments: ecchymosis Neurological Neurological: Present dizziness and frequent falls Psychiatric Psychiatric: Present as per HPI Endocrine Endocrine: Present fatigue Hematologic/Lymphatic Hematologic/Lymphatic: Present easy bruising PFSH PFSH All Active Problems (Updated 10/14/22 @ 21:21 by Jeevan Liu MD) Hyponatremia (Acute) Drug-induced hyperkalemia (Acute) [id number] renal failure (Acute) CKD (chronic kidney disease) stage 3, GFR 30-59 ml/min (Acute) S/P cholecystectomy (Chronic) History of surgery (Chronic) Elevated PSA (Chronic) Hypertension (Chronic) Prostate carcinoma (Chronic ~2004) Gout (Chronic) Hyperlipidemia (Chronic) CAD (coronary artery disease) of bypass graft (Chronic) Other chcf (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 (Chronic) Skin lesion of face (Chronic) Atherosclerosis (Chronic) Foot pain (Chronic) PVD (peripheral vascular disease) (Chronic) Esophageal reflux (Chronic) PSVT (paroxysmal supraventricular tachycardia) (Chronic) Renovascular hypertension (Chronic) Obesity (Chronic) Myalgia (Chronic) Lactose intolerance (Chronic) Stroke (Chronic ~01/1994) Renal artery stenosis (Chronic) Chronic constipation (Chronic) Tendinitis (Chronic) Erectile dysfunction (Chronic) Myocardial infarction (Chronic ~1991) Bruises easily (Chronic) Bleeds easily (Chronic) Hx of CABG (Chronic) Hx of angioplasty (Chronic) Calcified pleural plaque on chest x-ray (Chronic) Hepatic cyst (Chronic) Atelectasis of both lungs (Chronic) Renal cyst (Chronic) ANJEL (obstructive sleep apnea) (Chronic) Hypoxia (Chronic) Hypersomnia (Chronic) Snoring (Chronic) Witnessed apneic spells (Chronic) Nocturnal hypoxia (Chronic) Right carotid bruit (Chronic) Cervical disc disorder with radiculopathy, high cervical region (Chronic) Obstructive sleep apnea (Chronic) Encounter for long-term (current) use of medications (Chronic) Abdominal pain, RUQ (right upper quadrant) (Chronic) DDD (degenerative disc disease), lumbar (Chronic) Orthostatic hypotension (Chronic) Low back pain (Chronic) Radiculopathy, lumbar region (Chronic) Chronic pain (Chronic) DVT (deep venous thrombosis) (Chronic) Abrasion, left lower leg, initial encounter (Chronic) Prerenal azotemia (Chronic) Other intervertebral disc degeneration, lumbar region (Chronic) Chest pain (Chronic) Frequent PVCs (Chronic) Acute coronary syndrome with high troponin (Chronic) S/P coronary artery stent placement (Chronic) History of left heart catheterization (Chronic 11/02/20) Spondylosis without myelopathy or radiculopathy, lumbar region (Chronic) Spondylosis without myelopathy or radiculopathy, lumbosacral region (Chronic) Medicare annual wellness visit, subsequent (Chronic) Dizziness (Chronic) Chest pain (Chronic) Abdominal pain (Chronic) Left leg pain (Chronic) Sacroiliitis (Chronic) Chronic SI joint pain (Acute) Pneumonia of both lower lobes (Acute) GERD with esophagitis (Acute) Skin tear (Acute) Chronic SI joint pain (Chronic) Bilateral sacroiliitis (Acute) Fatigue (Acute) Nausea (Acute) Cough (Acute) Function kidney decreased (Acute) Peripheral arterial disease (Acute) Constipation (Acute) Sacrococcygeal disorders, not elsewhere classified (Chronic) Myofascial pain syndrome (Chronic) Constipation (Acute) Elevated WBC count (Acute) Bronchitis (Acute) CESILIA (acute kidney injury) (Acute) Hyperkalemia (Acute) Chronic diastolic (congestive) heart failure (Acute) Medical History Abdominal pain Abdominal pain, RUQ (right upper quadrant) Abrasion, left lower leg, initial encounter Acute coronary syndrome with high troponin Atelectasis of both lungs Atherosclerosis Bilateral sacroiliitis Bleeds easily Bruises easily CAD (coronary artery disease) of bypass graft Calcified pleural plaque on chest x-ray Cervical disc disorder with radiculopathy, high cervical region Chest pain Chronic constipation Chronic pain Chronic SI joint pain Chronic SI joint pain DDD (degenerative disc disease), lumbar Dizziness DVT (deep venous thrombosis) Elevated PSA Encounter for long-term (current) use of medications Erectile dysfunction Esophageal reflux Foot pain Frequent PVCs Function kidney decreased Gout Hepatic cyst Hyperlipidemia Hypersomnia Hypertension Hypoxia Lactose intolerance Left leg pain Low back pain Medicare annual wellness visit, subsequent Myalgia Myocardial infarction (~1991) 1991, 1992, 1994, 2004 Myofascial pain syndrome Nocturnal hypoxia Obesity Obstructive sleep apnea Orthostatic hypotension ANJEL (obstructive sleep apnea) Other intervertebral disc degeneration, lumbar region 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 Prerenal azotemia Prostate carcinoma (~2004) PSVT (paroxysmal supraventricular tachycardia) PVD (peripheral vascular disease) Radiculopathy, lumbar region Renal artery stenosis Renal cyst Renovascular hypertension Right carotid bruit Sacrococcygeal disorders, not elsewhere classified Sacroiliitis Skin lesion of face Snoring Spondylosis without myelopathy or radiculopathy, lumbar region Spondylosis without myelopathy or radiculopathy, lumbosacral region Stroke (~01/1994) 1994 Tendinitis Witnessed apneic spells Surgical History History of esophagogastroduodenoscopy (EGD) (02/05/22) History of left heart catheterization (11/02/20) 11/12/21 History of prostate surgery (~10/2004) radioactive seed implantation, brachytherapy History of quadruple bypass History of renal stent History of surgery heart Hx of angioplasty Hx of CABG 5 heart attacks S/P cholecystectomy S/P coronary artery stent placement Family History Mother , Age 84 Diabetes Hypertension Arthritis Grandmother Diabetes Arthritis maternal Father , Age 77 Hypertension Cancer Metastatic bone cancer Brother Hypertension Cancer Grandfather Hypertension maternal Heart disease maternal Heart attack Maternal. Family/Other Cancer Maternal aunt. Heart attack Maternal aunt. Stroke Maternal aunt. 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 physical activity: walking frequency: 3-4 times per week smoking status: Former smoker smoking status start date: 10/04/08 smoking status stop date: 08/31/96 alcohol intake frequency: does not drink substance use type: does not use seatbelt use: always MEDS/ALLERGIES Home Medications and Allergies Home Medications Medication Instructions Recorded Confirmed Type omega 4-spc-yzw-fish oil 1,000 mg 1 cap PO QDAY 01/10/20 10/14/22 History (120 mg-180 mg) capsule (Fish Oil) red yeast rice 600 mg capsule 600 mg PO QDAY 01/10/20 10/14/22 History Nocturnal Oxygen #1 ea 12/18/20 10/14/22 Rx aspirin 81 mg tablet,delayed 81 mg PO QDAY 06/04/21 10/14/22 History release spironolactone 25 mg tablet 25 mg PO QDAY 12/30/21 10/14/22 History nitroglycerin 0.4 mg sublingual 0.4 mg sublingual Q5-15M PRN chest 01/05/22 10/14/22 Rx tablet pain #25 tabs diltiazem HCl 120 mg capsule,24 120 mg PO QDAY 02/17/22 10/14/22 History hr,extended release hydralazine 100 mg tablet 100 mg PO BID #180 tabs 02/17/22 10/14/22 Rx lisinopril 5 mg tablet 5 mg PO QDAY #90 tabs 10/02/22 10/14/22 Rx omeprazole 20 mg capsule,delayed 20 mg PO BID #60 caps 10/02/22 10/14/22 Rx release cilostazol 50 mg tablet 50 mg PO BID 10/07/22 10/14/22 History sulfamethoxazole 800 1 tab PO BID #14 tabs 10/07/22 10/14/22 Rx mg-trimethoprim 160 mg tablet (Bactrim DS) acetaminophen 325 mg tablet 650 mg PO Q4H PRN Pain 10/14/22 10/14/22 History amiodarone 200 mg tablet 1 tab PO QDAY 10/14/22 10/14/22 History diltiazem HCl 30 mg tablet 30 mg PO Q4HP PRN Tachycardia 10/14/22 10/14/22 History hydrocodone 10 mg-acetaminophen 1 tab PO Q6H PRN Pain 10/14/22 10/14/22 History 325 mg tablet ibuprofen 200 mg capsule 800 mg PO Q8H PRN Pain 10/14/22 10/14/22 History Allergies Allergy/AdvReac Type Severity Reaction Status Date / Time clopidogrel [From Plavix] Allergy Severe Anaphylaxis Verified 10/14/22 07:49 ticagrelor [From Brilinta] Allergy Severe Swelling Verified 10/14/22 20:31 of Lip/Tongue/Throat carbamazepine Allergy Unknown Unknown Verified 10/14/22 07:49 escitalopram Allergy Unknown Unknown Verified 10/14/22 14:06 isosorbide Allergy Unknown Unknown Verified 10/14/22 14:06 lovastatin Allergy Unknown Unknown Verified 10/14/22 14:06 metoclopramide Allergy Unknown Unknown Verified 10/14/22 14:06 rosuvastatin Allergy Unknown Unknown Verified 10/14/22 14:06 simvastatin Allergy Unknown Unknown Verified 10/14/22 14:06 Physical Examination Vital Signs Vital signs: Temp Pulse Resp BP Pulse Ox O2 Del Method 36.3 C 80 33 H 146/53 93 10/14/22 16:01 10/14/22 18:01 10/14/22 16:16 10/14/22 18:01 10/14/22 18:01 10/14/22 18:01 General Appearance General appearance: chronically ill, fatigue and frail EENT EENT: ATNC, PERRL and mucous membranes dry Neck Neck: no JVD Respiratory Respiratory: scoliosis, rales and course breath sounds Cardiovascular Cardiology: mid-systolic murmur, edema, irregular rhythm, normal S1 and normal S2 Gastrointestinal Gastrointestinal: no tenderness and hepatomegaly Integumentary Integumentary: erythema, ecchymotic, skin tear and hyperpigmentation Neurologic Neurologic: no focal deficit, CN 3-12 intact and upper extremity weakness Musculoskeletal Musculoskeletal: decreased ROM Psychiatric Psychiatric: mood/affect appropriate Results Lab Results Result Diagrams: 10/14/22 10:03 10/14/22 15:34 Lab results: Most recent lab results Calcium 9.4 mg/dL (8.6-10.4) 10/14/22 15:34 A/P Assessment and plan (1) [id number] renal failure: Status: Acute Comment: Combo of ACEi + Spironolactone + TMP/SMX + NSAIDs = decreased auto regulation of renal blood flow especially in the setting of decreased renal perfusion with ISABELLE (2) Drug-induced hyperkalemia: Status: Acute Comment: ACEi + Spironolactone + TMP/SMX + NSAIDs = Acute hyperkalemia due to decreased GFR and decreased renal excretion of K (3) Hyponatremia: Status: Acute Comment: Excess po fluid intake in a patient with decreased LVEF (high ADH state) and diuretic use. Increased water intake is recommended on the pharmacy instructi ons dispensed with the Bactrim prescription. (4) CKD (chronic kidney disease) stage 3, GFR 30-59 ml/min: Status: Acute Comment: By history, this appears to be CKD 3 due to vascular Dx (both ISABELLE and small vessel disease within the kidney), decreased renal perfusion due to CHF with rLVEF and A Fib with loss of atrial kick. No evidence for obstruction and no proteinuria or hematuria to suggest a glomerulonephritis. The kidneys are atrophic and progression is expected (5) Renovascular hypertension: Status: Chronic Comment: S/P a left renal artery stent and a heavily calcified origin of the right RA wh ich is poorly treatable by interventional techniques. Plan 1. Stop lisinopril and aldactone 2. Stop Bactrim 3. No NSAIDs 4. Stop amiodarone 5. Work up pulmonary fibosis6 6. Work u[p ground glass opacities 7. Poor prognosis due to pulmonary and CV disease Narrative A/P Narrative: As above and in HPI Time Spent With Patient Time: Total time spent is greater than 50% in coordination of care (as documented) at patient's floor/unit and/or counseling patient:
[2022-10-14] MEDS: DOCUSATE SODIUM 100 MG CAPSULE PO SCH (20:14)
[2022-10-14] MEDS: IPRATROPIUM/ALBUTEROL 3 ML AMPUL.NEB NEB SCH (20:15)
[2022-10-14] MEDS: HEPARIN 5,000 UNIT/ML VIAL SQ SCH (20:15)
[2022-10-14] MEDS: BUDESONIDE 0.5 MG/2 ML AMPUL.NEB NEB SCH (20:15)
[2022-10-14] MEDS: hydrALAZINE 25 MG TABLET PO SCH (20:15)
[2022-10-14 23:34] LABS: Blood Urea Nitrogen 47 mg/dL (8-23); Calcium 9.5 mg/dL (8.6-10.4); Carbon Dioxide 21 mmol/L (22-30); Chloride 95 mmol/L (96-108); Glomerular Filtration Rate 16; Glucose 177 mg/dL (70-105)
[2022-10-15] MEDS: IPRATROPIUM/ALBUTEROL 3 ML AMPUL.NEB NEB SCH ×4 (02:23→19:11)
[2022-10-15] MEDS: oxyCODONE/APAP 5/325MG TABLET PO PRN ×4 (05:15→21:07)
[2022-10-15] MEDS: 0.9 % SODIUM CHLORIDE 10 ML SYRINGE IV SCH ×3 (05:40→21:08)
[2022-10-15] MEDS: methylPREDNISolone SOD SUCC 125 MG/2 ML VIAL IV SCH ×3 (05:40→21:08)
[2022-10-15 06:55] LABS: Basophils # (Auto) 0.01 K/mcL (0.00-0.30); Basophils % (Auto) 0.1 % (0.0-2.0); Eosinophils # (Auto) 0 K/mcL (0.00-0.70); Eosinophils % (Auto) 0 % (0.0-7.0); Hematocrit 35.7 % (40.1-51.0); Hemoglobin 11.7 g/dL (13.7-17.5); Lymphocytes # (Auto) 0.63 K/mcL (1.50-4.80); Mean Cell Volume 89.7 fL (80.0-100.0); Mean Corpuscular HGB Conc 32.8 g/dL (31.0-36.0); Mean Platelet Volume 9.2 fL (8.8-12.5); Monocytes # (Auto) 0.06 K/mcL (0.10-0.90); Monocytes % (Auto) 0.6 % (1.0-12.0); Neutrophils % (Auto) 92.5 % (38.0-78.0); Platelet Count 379 K/mcL (140-440); RBC 3.98 M/mcL (4.63-6.08); Red Cell Distribution Width 12.5 % (11.5-14.5); WBC 10.5 K/mcL (4.5-11.0)
[2022-10-15] MEDS: LACTATED RINGERS 1,000 ML IV SCH ×2 (08:04→21:07)
[2022-10-15] MEDS: BUDESONIDE 0.5 MG/2 ML AMPUL.NEB NEB SCH ×2 (08:14→19:11)
--- NOTE | 2022-10-15 08:36 | Nephrology Progress Note ---
SUBJECTIVE Subjective Patient information: Note initiated : 10/15/22 at 8:26 am Service Date, if different from initiated Date: [] Patient: Wilbert Gregg 72 y/o M admitted on 10/14/22 for n/a. Chief Complaint: Feels bad[] Principal diagnosis: New CT pulmonary abnormalities, ARF on CKD G3, electrolye abnormalies Interval history: Polypharmaceutical induced ARF on CKD 3 with hyperkalemia and hyponatremia as outlined 2022. Seen and examined on AM rounds. Vital Signs Temp Pulse Pulse Resp BP BP Pulse Ox 10/15/22 08:01 37.1 C 92 H 151/57 96 10/15/22 07:03 87 126/58 96 10/15/22 06:01 86 116/47 91 10/15/22 05:01 86 116/48 90 10/15/22 04:11 91 H 114/46 96 10/15/22 04:10 90 91 10/15/22 04:01 36.2 C 87 20 95/42 89 L 10/15/22 03:01 87 119/45 92 10/15/22 02:31 86 126/55 99 10/15/22 02:01 36.3 C 82 22 114/37 91 10/15/22 00:01 36.4 C 87 22 111/48 95 10/14/22 22:01 89 123/48 91 10/14/22 20:55 85 16 97 10/14/22 20:36 92 H 91 10/14/22 20:09 86 152/50 93 10/14/22 19:31 82 131/48 92 10/14/22 19:16 82 155/57 94 10/14/22 19:01 78 120/53 91 10/14/22 20:00 37.2 C 20 10/14/22 18:01 80 146/53 93 10/14/22 17:46 78 143/49 92 10/14/22 17:31 78 138/43 97 10/14/22 17:16 81 145/46 94 10/14/22 17:01 86 154/76 93 10/14/22 16:47 78 144/57 94 10/14/22 16:16 76 33 H 134/54 94 10/14/22 14:40 36.3 C 76 18 155/58 100 10/14/22 16:01 36.3 C 68 19 138/39 98 10/14/22 15:46 68 24 H 132/42 98 10/14/22 15:31 67 19 136/51 97 10/14/22 15:25 69 25 H 100 10/14/22 15:16 68 21 149/48 99 10/14/22 14:54 36.3 C 70 26 H 155/58 98 10/14/22 14:01 69 24 H 145/58 99 10/14/22 13:56 69 24 H 133/59 100 10/14/22 14:46 35.7 C L 69 24 H 145/58 99 10/14/22 13:41 22 143/39 10/14/22 12:41 73 17 114/41 97 10/14/22 12:34 76 16 97 10/14/22 12:01 73 25 H 102/43 97 10/14/22 11:41 74 19 124/44 99 10/14/22 11:34 75 21 125/46 98 10/14/22 10:32 21 137/62 10/14/22 10:23 77 17 109/62 100 10/14/22 10:15 77 24 H 121/100 100 10/14/22 10:01 78 24 H 123/42 99 10/14/22 09:59 79 19 128/46 99 10/14/22 09:36 35.7 C L 78 20 110/52 98 Intake and Output 10/14/22 10/15/22 10/15/22 19:59 03:59 11:59 Intake Total 1200 250 200 Output Total 925 775 Balance 275 -525 200 Intake: IV 1000 Sodium Chloride 0.9% 1,000 ml @ 1000 Wide Open IV BOLUS ONE Rx#: [id number] Oral 200 250 200 Output: Void Amount 925 775 Other: Meal Dinner Percent of Meal Consumed 100% Feeding Ability Independent Urine Appearance Clear Urine Color Pale Weight 96.814 kg FeNa =0.47% Current Medications Acetaminophen (Acetaminophen 325 Mg Tablet) 650 mg PO Q6HP PRN; Protocol PRN Reason: Per Pain Protocol/Fever > 101 Albuterol/Ipratropium (Ipratropium/Albuterol 3 Ml Ampul.Neb) 3 ml NEB Q6HRT [facility] Last Admin: 10/15/22 08:14 Dose: 3 ml Aspirin (Aspirin 81 Mg Tab.Chew) 81 mg PO DAILY [facility] Budesonide (Budesonide 0.5 Mg/2 Ml Ampul.Neb) 0.5 mg NEB Q12 [facility] Last Admin: 10/15/22 08:14 Dose: 0.5 mg Diltiazem HCl (Diltiazem 120 Mg Cap.Xl.24h) 120 mg PO DAILY [facility] Diltiazem HCl (Diltiazem 30 Mg Tablet) 30 mg PO QIDP PRN PRN Reason: chest pain Docusate Sodium (Docusate Sodium 100 Mg Capsule) 100 mg PO BID [facility] Last Admin: 10/14/22 20:14 Dose: 100 mg Heparin Sodium (Porcine) (Heparin 5,000 Unit/Ml Vial) 5,000 unit SQ Q12 [facility] Last Admin: 10/14/22 20:15 Dose: 5,000 unit Hydralazine HCl (Hydralazine 25 Mg Tablet) 100 mg PO BID [facility] Last Admin: 10/14/22 20:15 Dose: 100 mg Lactated Ringer's (Lactated Ringers) 1,000 mls @ 75 mls/hr IV .[id number] [facility] Last Admin: 10/15/22 08:04 Dose: 75 mls/hr Lactulose (Lactulose 20 Gm/30 Ml Oral.Asya) 10 gm PO DAILYP PRN PRN Reason: Constipation Methylprednisolone Sodium Succinate (Methylprednisolone Sod Succ 125 Mg/2 Ml Vial) 80 mg IV Q8 [facility] Last Admin: 10/15/22 05:40 Dose: 80 mg Morphine Sulfate (Morphine 4 Mg/Ml Vial) 4 mg IV Q4HP PRN; Protocol PRN Reason: Per Pain Protocol Last Admin: 10/14/22 20:15 Dose: 4 mg Ondansetron HCl (Ondansetron 4 Mg/2 Ml Vial) 4 mg IV Q4HP PRN; Protocol PRN Reason: Nausea And Vomiting Oxycodone/Acetaminophen (Oxycodone/Apap 5/325mg Tablet) 1 tab PO Q4HP PRN; Protocol PRN Reason: Per Pain Protocol Last Admin: 10/15/22 05:15 Dose: 1 tab Pneumococcal Polyvalent Vaccine (Pneumococcal 23-Kelle P-Sac Vac 0.5 Ml Syringe) 0.5 ml IM .ONCE ONE Stop: 10/15/22 10:01 Senna (Sennosides 1 Tablet) 2 tab PO HSP PRN PRN Reason: Constipation Sodium Chloride (0.9 % Sodium Chloride 10 Ml Syringe) 10 ml IV Q8 [facility] Last Admin: 10/15/22 05:40 Dose: 10 ml Pertinent ROS: SOB Back pain Additional PMFSH (Level 3 Only): N/A Constitutional Vitals: Vital Signs Temp Pulse Resp BP Pulse Ox O2 Del Method 36.2 C 87 20 126/58 96 10/15/22 04:01 10/15/22 07:03 10/15/22 04:01 10/15/22 07:03 10/15/22 07:03 10/15/22 07:03 Period Temp Pulse Resp BP Sys/Pineda Pulse Ox O2 Del Method O2 Flow Rate Last 24 Hr 35.7 C-37.2 C 67-92 16-33 95-155/37-100 89-100 Room Air-Room Air Intake and Output 10/14/22 10/15/22 10/15/22 19:59 03:59 11:59 Intake Total 1200 250 200 Output Total 925 775 Balance 275 -525 200 Weight 96.814 kg Intake & Output: Intake & Output 10/14/22 10/15/22 10/15/22 19:59 03:59 11:59 Intake Total 1200 250 200 Output Total 925 775 Balance 275 -525 200 Weight 96.814 kg Intake: IV 1000 Sodium Chloride 0.9% 1,000 ml @ 1000 Wide Open IV BOLUS ONE Rx#: [id number] Oral 200 250 200 Output: Void Amount 925 775 Other: Meal Dinner Percent of Meal Consumed 100% Feeding Ability Independent Urine Appearance Clear Urine Color Pale General appearance: moderate distress and obese Head Head exam: Present normocephalic Eye Eye exam: Present EOMI and PERRL; Absent scleral icterus Neck Neck exam: Absent meningismus Respiratory Respiratory exam: Present rales ([place] right post base), respiratory distress and rhonchi Cardiovascular Cardiovascular exam: Present irregular rhythm, +S1 and +S2 GI/Abdominal GI/Abdominal exam: Present soft, diminished bowel sounds and distended Additional comments: Refused emmanuel Neurological Exam Neurological exam: Present CN II-XII intact Psychiatric Psychiatric exam: Present anxious Expanded Psychiatric Exam Focused psych exam: Present restlessness Skin Skin exam: Present dry and pallor A/P Assessment and plan (1) Hvclr-dx-wsdurcg renal failure: Status: Acute Comment: Combo of ACEi + Spironolactone + TMP/SMX + NSAIDs = decreased auto regulation of renal blood flow especially in the setting of decreased renal perfusion with ISABELLE (2) Hyponatremia: Status: Acute Comment: Excess po fluid intake in a patient with decreased LVEF (high ADH state) and diuretic use. Increased water intake is recommended on the pharmacy instruction s dispensed with the Bactrim prescription. (3) Drug-induced hyperkalemia: Status: Acute Comment: ACEi + Spironolactone + TMP/SMX + NSAIDs = Acute hyperkalemia due to decreased GFR and decreased renal excretion of K (4) CKD (chronic kidney disease) stage 3, GFR 30-59 ml/min: Status: Acute Comment: By history, this appears to be CKD 3 due to vascular Dx (both ISABELLE and small vessel disease within the kidney), decreased renal perfusion due to CHF with rLVEF and A Fib with loss of atrial kick. No evidence for obstruction and no proteinuria or hematuria to suggest a glomerulonephritis. The kidneys are at rophic and progression is expected (5) Pulmonary interstitial fibrosis: Status: Acute Comment: New since 2019. Suspect amiodarone but many other possibilities including covid vaccination adverse reaction. Bioinflammatory markers pending but cannot do radionuclide scan Plan Adjust BP Rx to short acting diltiazem, idalia since LVEF seems ok, and BP on the low size. For what it is worth, proBNP elevation > Procalcitonin elevation so considering lasix drip if BP improved Stopped hydralazine, lisinopril, spironolactone, advil and aminoderone Can't do anything about ISABELLE as left is already stented and right is an ostial wad of calcified plaque Ignore DVT due to left calf location and previous risk/benefit of NOAC use by Dr Maria Pulmonary fibrosis and GGO >>> PE for etiology of BYRD/SOB Considerer steroid trial Need a good sputum sample...sputum induction tomorrow Time Spent With Patient Time: Total time spent is greater than 50% in coordination of care (as documented) at patient's floor/unit and/or counseling patient:
[2022-10-15] MEDS ORDERED: DILTIAZEM 120 MG CAP.XL.24H PO SCH (09:00)
[2022-10-15] MEDS: hydrALAZINE 25 MG TABLET PO SCH (09:24)
[2022-10-15] MEDS: ASPIRIN 81 MG TAB.CHEW PO SCH (09:24)
[2022-10-15] MEDS: HEPARIN 5,000 UNIT/ML VIAL SQ SCH ×2 (09:25→21:07)
[2022-10-15] MEDS: DOCUSATE SODIUM 100 MG CAPSULE PO SCH ×2 (09:25→21:07)
[2022-10-15] MEDS ORDERED: PNEUMOCOCCAL 23-VAL P-SAC VAC 0.5 ML SYRINGE IM ONE (10:00)
[2022-10-15 11:36] LABS: Basophils # (Auto) 0.01 K/mcL (0.00-0.30); Basophils % (Auto) 0.1 % (0.0-2.0); Eosinophils # (Auto) 0 K/mcL (0.00-0.70); Eosinophils % (Auto) 0 % (0.0-7.0); Hematocrit 37.2 % (40.1-51.0); Hemoglobin 12.4 g/dL (13.7-17.5); Lymphocytes # (Auto) 0.41 K/mcL (1.50-4.80); Mean Cell Volume 90.1 fL (80.0-100.0); Mean Corpuscular HGB Conc 33.3 g/dL (31.0-36.0); Mean Platelet Volume 9.5 fL (8.8-12.5); Monocytes # (Auto) 0.07 K/mcL (0.10-0.90); Monocytes % (Auto) 0.5 % (1.0-12.0); Neutrophils % (Auto) 95.8 % (38.0-78.0); Platelet Count 452 K/mcL (140-440); RBC 4.13 M/mcL (4.63-6.08); Red Cell Distribution Width 12.5 % (11.5-14.5); WBC 13.9 K/mcL (4.5-11.0)
[2022-10-15] MEDS: morphine 4 MG/ML VIAL IV PRN ×2 (11:39→18:07)
[2022-10-15 12:03] LABS: Blood Urea Nitrogen 55 mg/dL (8-23); Calcium 9.8 mg/dL (8.6-10.4); Carbon Dioxide 20 mmol/L (22-30); Chloride 93 mmol/L (96-108); Glomerular Filtration Rate 15; Glucose 230 mg/dL (70-105)
--- NOTE | 2022-10-15 13:00 | Internal Med Progress Note ---
SUBJECTIVE Subjective Patient information: Note initiated : 10/15/22 at 12:58 pm Service Date, if different from initiated Date: [] Patient: Wilbert Gregg 72 y/o M admitted on 10/14/22 for n/a. Chief Complaint: [SOB] Principal diagnosis: ILD, CESILIA Interval history: The patient was resting in bed. He continues to have increased work of breathing. He is not requiring supplemental O2. The long goals of care and plan of care discussion with the patient and his was present at the bedside. Constitutional Vitals: Vital Signs Temp Pulse Resp BP Pulse Ox O2 Del Method 97.7 F 93 H 18 101/39 94 10/15/22 12:02 10/15/22 12:02 10/15/22 08:16 10/15/22 12:02 10/15/22 12:02 10/15/22 12:02 Period Temp Pulse Resp BP Sys/Pineda Pulse Ox O2 Del Method O2 Flow Rate Last 24 Hr 96.2 F-98.9 F 67-104 16-33 95-155/36-76 89-100 Room Air-Room Air Intake and Output 10/15/22 10/15/22 10/15/22 03:59 11:59 19:59 Intake Total 250 560 Output Total 775 Balance -525 560 Intake & Output: Intake & Output 10/15/22 10/15/22 10/15/22 03:59 11:59 19:59 Intake Total 250 560 Output Total 775 Balance -525 560 Intake: Oral 250 560 Output: Void Amount 775 Other: Meal Breakfast Percent of Meal Consumed 100% Feeding Ability Independent Head Head exam: Present atraumatic and normal inspection Eye Eye exam: Present normal appearance ENT ENT exam: Present mucous membranes moist, normal exam and normal external ear exam Neck Neck exam: Present normal inspection Respiratory Respiratory exam: Present decreased breath sounds and rhonchi Cardiovascular Cardiovascular exam: Present normal rate and rhythm GI/Abdominal GI/Abdominal exam: Present normal bowel sounds Back Exam Back exam: Present normal inspection Neurological Exam Neurological exam: Present alert and oriented X3 Skin Skin exam: Present intact and warm OBJ DATA Labs CBC & Chem 7: 10/15/22 10:57 10/15/22 10:57 Labs: Abnormal Lab Results 10/15/22 10/15/22 10/15/22 10:57 10:57 06:13 WBC 13.9 H RBC 4.13 L Hgb 12.4 L Hct 37.2 L POC Hct Plt Count 452 H Immature Gran % (Auto) 0.6 H Neut % (Auto) 95.8 H Lymph % (Auto) 3.0 L [place] % (Auto) 0.5 L Lymph # (Auto) 0.41 L [place] # (Auto) 0.07 L Immature Gran # 0.08 H Absolute Neutrophils 13.29 H ESR 32 H POC Sodium Sodium 127 L POC Potassium Potassium 5.5 H Chloride 93 L Carbon Dioxide 20 L POC BUN BUN 55 H Creatinine 3.7 H POC Creatinine Glucose 230 H POC Glucose NT-Pro-B Natriuret Pep 10/15/22 10/14/22 10/14/22 06:12 22:17 15:34 WBC RBC 3.98 L Hgb 11.7 L Hct 35.7 L POC Hct Plt Count Immature Gran % (Auto) 0.8 H Neut % (Auto) 92.5 H Lymph % (Auto) 6.0 L [place] % (Auto) 0.6 L Lymph # (Auto) 0.63 L [place] # (Auto) 0.06 L Immature Gran # 0.08 H Absolute Neutrophils 9.67 H ESR POC Sodium Sodium 127 L 128 L POC Potassium Potassium 5.8 H 5.3 H Chloride 95 L Carbon Dioxide 21 L POC BUN BUN 47 H 46 H Creatinine 3.5 H 3.0 H POC Creatinine Glucose 177 H POC Glucose NT-Pro-B Natriuret Pep 10/14/22 10/14/22 10/14/22 13:14 11:22 10:03 WBC RBC 3.92 L Hgb 11.4 L Hct 35.1 L POC Hct Plt Count Immature Gran % (Auto) Neut % (Auto) Lymph % (Auto) [place] % (Auto) Lymph # (Auto) [place] # (Auto) 0.99 H Immature Gran # Absolute Neutrophils ESR POC Sodium Sodium POC Potassium Potassium 5.2 H Chloride Carbon Dioxide POC BUN BUN Creatinine POC Creatinine Glucose POC Glucose NT-Pro-B Natriuret Pep 1309.0 H 1168.0 H 10/14/22 09:53 WBC RBC Hgb Hct POC Hct 35.0 L Plt Count Immature Gran % (Auto) Neut % (Auto) Lymph % (Auto) [place] % (Auto) Lymph # (Auto) [place] # (Auto) Immature Gran # Absolute Neutrophils ESR POC Sodium 129 L Sodium POC Potassium 6.0 H* Potassium Chloride Carbon Dioxide POC BUN 55 H BUN Creatinine POC Creatinine 3.8 H Glucose POC Glucose 134 H NT-Pro-B Natriuret Pep Meds: Medications Acetaminophen (Acetaminophen 325 Mg Tablet) 650 mg PO Q6HP PRN; Protocol PRN Reason: Per Pain Protocol/Fever > 101 Albuterol/Ipratropium (Ipratropium/Albuterol 3 Ml Ampul.Neb) 3 ml NEB Q6HRT [facility] Last Admin: 10/15/22 08:14 Dose: 3 ml Aspirin (Aspirin 81 Mg Tab.Chew) 81 mg PO DAILY [facility] Last Admin: 10/15/22 09:24 Dose: 81 mg Budesonide (Budesonide 0.5 Mg/2 Ml Ampul.Neb) 0.5 mg NEB Q12 [facility] Last Admin: 10/15/22 08:14 Dose: 0.5 mg Diltiazem HCl (Diltiazem 30 Mg Tablet) 30 mg PO Q6 [facility] Docusate Sodium (Docusate Sodium 100 Mg Capsule) 100 mg PO BID [facility] Last Admin: 10/15/22 09:25 Dose: 100 mg Heparin Sodium (Porcine) (Heparin 5,000 Unit/Ml Vial) 5,000 unit SQ Q12 [facility] Last Admin: 10/15/22 09:25 Dose: 5,000 unit Lactated Ringer's (Lactated Ringers) 1,000 mls @ 75 mls/hr IV .[id number] [facility] Last Admin: 10/15/22 08:04 Dose: 75 mls/hr Lactulose (Lactulose 20 Gm/30 Ml Oral.Asya) 10 gm PO DAILYP PRN PRN Reason: Constipation Methylprednisolone Sodium Succinate (Methylprednisolone Sod Succ 125 Mg/2 Ml Vial) 80 mg IV Q8 [facility] Last Admin: 10/15/22 05:40 Dose: 80 mg Morphine Sulfate (Morphine 4 Mg/Ml Vial) 4 mg IV Q4HP PRN; Protocol PRN Reason: Per Pain Protocol Last Admin: 10/15/22 11:39 Dose: 4 mg Ondansetron HCl (Ondansetron 4 Mg/2 Ml Vial) 4 mg IV Q4HP PRN; Protocol PRN Reason: Nausea And Vomiting Oxycodone/Acetaminophen (Oxycodone/Apap 5/325mg Tablet) 1 tab PO Q4HP PRN; Protocol PRN Reason: Per Pain Protocol Last Admin: 10/15/22 09:25 Dose: 1 tab Senna (Sennosides 1 Tablet) 2 tab PO HSP PRN PRN Reason: Constipation Sodium Chloride (0.9 % Sodium Chloride 10 Ml Syringe) 10 ml IV Q8 [facility] Last Admin: 10/15/22 05:40 Dose: 10 ml A/P Assessment and plan (1) DVT (deep venous thrombosis): Status: Chronic Qualifiers: DVT location: lower extremity Affected thrombotic vein of extremity: popliteal Chronicity: acute Laterality: right Qualified Code(s): I82.431 - Acute embolism and thrombosis of right popliteal vein (2) ANJEL (obstructive sleep apnea): Status: Chronic (3) CAD (coronary artery disease) of bypass graft: Status: Chronic (4) CESILIA (acute kidney injury): Status: Acute (5) Hyperkalemia: Status: Acute (6) Chronic diastolic (congestive) heart failure: Status: Acute Narrative A/P Narrative: #Ground glass opacities -DDx: vasculitis vs pulmonary edema vs ILD/pulmonary fibrosis vs drug induced -Investigations: CT revealed 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 This may be due to UIP (usual interstitial pneumonia) or collagen vascular disease -Tx: would recommend holding amiodarone, trial duonebs/pulmicort + solu-medrol #HFpEF -The patient's volume status is difficult to assess given body habitus, but there may be component of CHF exacerbation given elevated JVD -Will repeat TTE-> pending -Tx: trial lasix 40mg IV x 1-> no evidence of CHF, as there was not clinical improvement. #CESILIA -Cr is up to 3.9 -multifactorial in etiology-> recent bactrim use, lisinopril, aldactone + ?cardiorenal syndrome -Tx: gently hydrate with IVF, nephrology is following -Hold nephrotoxic agents, renally dose meds #Below the knee DVT -Literature does not support anticoagulation, continue conservative tx #HyperK -Will continue to monitor -Continue telemetry #CAD -Continue ASA, patient is on red yeast extract instead of statin Time Spent With Patient Time: Total time spent is greater than 50% in coordination of care (as documented) at patient's floor/unit and/or counseling patient: QUALITY VTE Deep Vein Thrombosis/Pulmonary Embolism Present on Admission: No
[2022-10-15 14:05] LABS: Complement C3 124.6 mg/dL (90.0-180.0)
[2022-10-15] MEDS: DILTIAZEM 30 MG TABLET PO SCH (17:57)
[2022-10-16] MEDS: methylPREDNISolone SOD SUCC 125 MG/2 ML VIAL IV SCH ×3 (05:10→21:17)
[2022-10-16] MEDS: DILTIAZEM 30 MG TABLET PO SCH ×5 (05:10→23:49)
[2022-10-16] MEDS: 0.9 % SODIUM CHLORIDE 10 ML SYRINGE IV SCH ×3 (05:11→21:18)
[2022-10-16] MEDS: oxyCODONE/APAP 5/325MG TABLET PO PRN ×3 (05:17→21:17)
[2022-10-16 06:33] LABS: Blood Urea Nitrogen 68 mg/dL (8-23); Calcium 9.1 mg/dL (8.6-10.4); Carbon Dioxide 21 mmol/L (22-30); Chloride 93 mmol/L (96-108); Glomerular Filtration Rate 15; Glucose 137 mg/dL (70-105)
[2022-10-16] MEDS ORDERED: SODIUM POLYSTYRENE SULFONATE 15 GM/60 ML SUSPENSION PO SCH (07:21)
--- NOTE | 2022-10-16 07:33 | Nephrology Progress Note ---
SUBJECTIVE Subjective Patient information: Note initiated : 10/16/22 at 7:30 am Service Date, if different from initiated Date: [] Patient: Wilbert Gregg 72 y/o M admitted on 10/14/22 for n/a. Chief Complaint: [SOB] Principal diagnosis: New CT pulmonary abnormalities, ARF on CKD G3, electrolye abnormalies Interval history: Seen and evaluated on AM rounds. Vital Signs Temp Pulse Pulse Resp BP Pulse Ox O2 Del Method 10/16/22 06:01 82 130/49 90 Room Air 10/16/22 04:01 37.1 C 80 106/41 93 Room Air 10/16/22 02:01 86 124/52 92 Room Air 10/16/22 02:00 92 Room Air 10/16/22 00:01 37.1 C 85 126/43 93 10/15/22 20:00 95 Room Air 10/15/22 22:01 95 H 140/62 91 Room Air 10/15/22 20:01 36.6 C 86 110/39 93 Room Air 10/15/22 19:21 85 18 97 Room Air 10/15/22 18:15 87 115/42 98 Room Air 10/15/22 16:01 36.5 C 88 119/54 94 Room Air 10/15/22 14:00 20 94 Room Air 10/15/22 14:00 92 H 10/15/22 08:00 92 H 18 96 Room Air 10/15/22 14:00 110 H 123/52 94 Room Air 10/15/22 13:29 92 H 20 94 Room Air, Heated High Flow Nasal Ca 10/15/22 12:02 36.5 C 93 H 101/39 94 Room Air 10/15/22 12:01 92 H 103/36 95 Room Air 10/15/22 11:01 98 H 114/48 96 Room Air 10/15/22 10:00 104 H 130/56 94 Room Air 10/15/22 09:01 102 H 114/56 96 Room Air 10/15/22 08:01 37.1 C 92 H 151/57 96 Room Air 10/15/22 08:16 87 18 94 Room Air Intake and Output 10/15/22 10/16/22 10/16/22 19:59 03:59 11:59 Intake Total 920 1204 125 Output Total 125 200 325 Balance 795 1004 -200 Intake: IV 979 Lactated Ringers 1,000 ml @ 75 979 mls/hr IV .[id number] [facility] Rx#: [id number] Oral 920 225 125 Output: Void Amount 125 200 325 Other: Meal Dinner Percent of Meal Consumed 100% Feeding Ability Independent Urine Appearance Clear Clear Urine Color Pale Light Nevaeh Weight 96.814 kg 97.613 kg Pertinent ROS: Ambulated with walker and SBA Dyspnea with primary respiratory alkalosis Constitutional Vitals: Vital Signs Temp Pulse Resp BP Pulse Ox O2 Del Method 37.1 C 82 18 130/49 90 10/16/22 04:01 10/16/22 06:01 10/15/22 19:21 10/16/22 06:01 10/16/22 06:01 10/16/22 06:01 Period Temp Pulse Resp BP Sys/Pineda Pulse Ox O2 Del Method O2 Flow Rate Last 24 Hr 36.5 C-37.1 C 80-110 18-20 101-151/36-62 90-98 Room Air-Room Air, Heated High Flow Nasal Ca Intake and Output 10/15/22 10/16/22 10/16/22 19:59 03:59 11:59 Intake Total 920 1204 125 Output Total 125 200 325 Balance 795 1004 -200 Weight 96.814 kg 97.613 kg Intake & Output: Intake & Output 10/15/22 10/16/22 10/16/22 19:59 03:59 11:59 Intake Total 920 1204 125 Output Total 125 200 325 Balance 795 1004 -200 Weight 96.814 kg 97.613 kg Intake: IV 979 Lactated Ringers 1,000 ml @ 75 979 mls/hr IV .[id number] [facility] Rx#: [id number] Oral 920 225 125 Output: Void Amount 125 200 325 Other: Meal Dinner Percent of Meal Consumed 100% Feeding Ability Independent Urine Appearance Clear Clear Urine Color Pale Light Nevaeh General appearance: moderate distress and obese Head Head exam: Present normocephalic Eye Eye exam: Present EOMI and PERRL; Absent scleral icterus Neck Neck exam: Absent meningismus Respiratory Respiratory exam: Present rales ([place] right post base), respiratory distress and rhonchi Cardiovascular Cardiovascular exam: Present irregular rhythm, +S1 and +S2 GI/Abdominal GI/Abdominal exam: Present soft, diminished bowel sounds and distended Additional comments: Refused emmanuel Neurological Exam Neurological exam: Present CN II-XII intact Psychiatric Psychiatric exam: Present anxious Expanded Psychiatric Exam Focused psych exam: Present restlessness Skin Skin exam: Present dry and pallor A/P Assessment and plan (1) Ybegh-sf-guwqteo renal failure: Status: Acute Comment: Combo of ACEi + Spironolactone + TMP/SMX + NSAIDs = decreased auto regulation of renal blood flow especially in the setting of decreased renal perfusion with ISABELLE (2) Hyponatremia: Status: Acute Comment: Excess po fluid intake in a patient with decreased LVEF (high ADH state) and diuretic use. Increased water intake is recommended on the pharmacy instructions dispensed with the Bactrim prescription. (3) Drug-induced hyperkalemia: Assessment and plan: Still elevated but not acidotic. Effects of spironolactone and ACEi can be up to 72 hr.. Kayexalate and Glucoe/insulin given No obstruction on U/S Recheck labs 1800 Status: Acute Comment: ACEi + Spironolactone + TMP/SMX + NSAIDs = Acute hyperkalemia due to decreased GFR and decreased renal excretion of K (4) CKD (chronic kidney disease) stage 3, GFR 30-59 ml/min: Status: Acute Comment: By history, this appears to be CKD 3 due to vascular Dx (both ISABELLE and small vessel disease within the kidney), decreased renal perfusion due to CHF with rLVEF and A Fib with loss of atrial kick. No evidence for obstruction and no proteinuria or hematuria to suggest a glomerulonephritis. The kidneys are atrophic and progression is expected (5) Pulmonary interstitial fibrosis: Status: Acute Comment: New since 2019. Suspect amiodarone but many other possibilities including covid vaccination adverse reaction. Bioinflammatory markers pending but cannot do radionuclide scan Plan Adjust BP Rx to short acting diltiazem, [place] since LVEF seems ok, and BP on the low size. For what it is worth, proBNP elevation > Procalcitonin elevation so considering lasix drip if BP improved Stopped hydralazine, lisinopril, spironolactone, advil and aminoderone Can't do anything about ISABELLE as left is already stented and right is an ostial wad of calcified plaque Ignore DVT due to left calf location and previous risk/benefit of NOAC use by Dr Maria Pulmonary fibrosis and GGO >>> PE for etiology of BYRD/SOB Considerer steroid trial Need a good sputum sample...sputum induction tomorrow Time Spent With Patient Time: Total time spent is greater than 50% in coordination of care (as documented) at patient's floor/unit and/or counseling patient:
[2022-10-16] MEDS ORDERED: INSULIN REGULAR, HUMAN 1 UNIT/0.01 ML UNIT IV SCH (07:41)
[2022-10-16] MEDS: BUDESONIDE 0.5 MG/2 ML AMPUL.NEB NEB SCH ×3 (07:41→19:31)
[2022-10-16] MEDS: IPRATROPIUM/ALBUTEROL 3 ML AMPUL.NEB NEB SCH ×5 (07:42→19:31)
[2022-10-16] MEDS ORDERED: DEXTROSE 50% 50 ML SYRINGE IV SCH (07:45)
[2022-10-16] MEDS ORDERED: DEXTROSE 50% 50 ML SYRINGE IV ONE (08:04)
[2022-10-16] MEDS: DOCUSATE SODIUM 100 MG CAPSULE PO SCH ×2 (08:34→21:17)
[2022-10-16] MEDS: ASPIRIN 81 MG TAB.CHEW PO SCH (08:34)
[2022-10-16] MEDS: HEPARIN 5,000 UNIT/ML VIAL SQ SCH ×2 (08:34→21:18)
--- NOTE | 2022-10-16 09:54 | EKG ---
[facility] Test Date: 2022-10-15 Pat Name: Wilbert Gregg Department: ICU Room: 120A Gender: Male Well Puller: : 1950 Requested By: Thomas Martinez Order Number: [id number] Reading MD: Dewey Matamoros Measurements Intervals [place] Rate: 94 P: 0 [place]: 134 QRS: 101 QRSD: 176 T: -27 QT: 464 QTc: 580 Interpretive Statements Sinus rhythm RBBB Electronically Signed On 10-16-2022 9:53:53 PST by Dewey Matamoros /[id number]
--- NOTE | 2022-10-16 10:10 | Internal Med Progress Note ---
SUBJECTIVE Subjective Patient information: Note initiated : 10/16/22 at 10:08 am Service Date, if different from initiated Date: [] Patient: Wilbert Gregg 72 y/o M admitted on 10/14/22 for n/a. Chief Complaint: [] Principal diagnosis: New CT pulmonary abnormalities, ARF on CKD G3, electrolye abnormalies Interval history: The patient was resting comfortably in bed while eating breakfast. He looks and feels much better today in terms of his breathing. He had no active complaints or concerns. Discussed the case with the RN. Constitutional Vitals: Vital Signs Temp Pulse Resp BP Pulse Ox O2 Del Method 98.1 F 86 20 117/55 93 10/16/22 08:02 10/16/22 10:01 10/16/22 08:23 10/16/22 10:01 10/16/22 10:01 10/16/22 10:01 Period Temp Pulse Resp BP Sys/Pineda Pulse Ox O2 Del Method O2 Flow Rate Last 24 Hr 97.7 F-98.8 F 80-110 18-20 101-140/36-62 90-100 Room Air-Room Air, Heated High Flow Nasal Ca Intake and Output 10/15/22 10/16/22 10/16/22 19:59 03:59 11:59 Intake Total 920 1204 365 Output Total 125 200 475 Balance 795 1004 -110 Weight 96.814 kg 97.613 kg Intake & Output: Intake & Output 10/15/22 10/16/22 10/16/22 19:59 03:59 11:59 Intake Total 920 1204 365 Output Total 125 200 475 Balance 795 1004 -110 Weight 96.814 kg 97.613 kg Intake: IV 979 Lactated Ringers 1,000 ml @ 75 979 mls/hr IV .[id number] [facility] Rx#: [id number] Oral 920 225 365 Output: Void Amount 125 200 475 Other: Meal Dinner Breakfast Percent of Meal Consumed 100% 100% Feeding Ability Independent Independent Urine Appearance Clear Clear Urine Color Pale Yellow Head Head exam: Present atraumatic and normal inspection Eye Eye exam: Present normal appearance ENT ENT exam: Present mucous membranes moist, normal exam and normal external ear exam Neck Neck exam: Present normal inspection Respiratory Respiratory exam: Present normal respiratory exam Cardiovascular Cardiovascular exam: Present normal rate and rhythm GI/Abdominal GI/Abdominal exam: Present normal bowel sounds Back Exam Back exam: Present normal inspection Neurological Exam Neurological exam: Present alert and oriented X3 Skin Skin exam: Present intact and warm OBJ DATA Labs CBC & Chem 7: 10/15/22 10:57 10/16/22 05:12 Labs: Abnormal Lab Results 10/16/22 10/16/22 10/15/22 08:00 05:12 13:20 WBC RBC Hgb Hct POC Hct Plt Count Immature Gran % (Auto) Neut % (Auto) Lymph % (Auto) Gordon % (Auto) Lymph # (Auto) Gordon # (Auto) Immature Gran # Absolute Neutrophils ESR POC VBG pH 7.45 H POC VBG pCO2 at Temp 28.7 L POC VBG pO2 53 H POC VBG HCO3 19.9 L POC VBG Total CO2 21.0 L POC Venous O2 Sat 89.0 H POC VBG Base Excess -4.0 L POC Sodium Sodium 126 L POC Potassium Potassium 6.5 H* Chloride 93 L Carbon Dioxide 21 L POC BUN BUN 68 H Creatinine 3.8 H POC Creatinine Glucose 137 H POC Glucose NT-Pro-B Natriuret Pep 3772.0 H Procalcitonin 10/15/22 10/15/22 10/15/22 10:57 10:57 10:57 WBC RBC Hgb Hct POC Hct Plt Count Immature Gran % (Auto) Neut % (Auto) Lymph % (Auto) Gordon % (Auto) Lymph # (Auto) Gordon # (Auto) Immature Gran # Absolute Neutrophils ESR 52 H POC VBG pH POC VBG pCO2 at Temp POC VBG pO2 POC VBG HCO3 POC VBG Total CO2 POC Venous O2 Sat POC VBG Base Excess POC Sodium Sodium 127 L POC Potassium Potassium 5.5 H Chloride 93 L Carbon Dioxide 20 L POC BUN BUN 55 H Creatinine 3.7 H POC Creatinine Glucose 230 H POC Glucose NT-Pro-B Natriuret Pep Procalcitonin 0.15 H 10/15/22 10/15/22 10/15/22 10:57 06:13 06:12 WBC 13.9 H RBC 4.13 L 3.98 L Hgb 12.4 L 11.7 L Hct 37.2 L 35.7 L POC Hct Plt Count 452 H Immature Gran % (Auto) 0.6 H 0.8 H Neut % (Auto) 95.8 H 92.5 H Lymph % (Auto) 3.0 L 6.0 L Gordon % (Auto) 0.5 L 0.6 L Lymph # (Auto) 0.41 L 0.63 L Gordon # (Auto) 0.07 L 0.06 L Immature Gran # 0.08 H 0.08 H Absolute Neutrophils 13.29 H 9.67 H ESR 32 H POC VBG pH POC VBG pCO2 at Temp POC VBG pO2 POC VBG HCO3 POC VBG Total CO2 POC Venous O2 Sat POC VBG Base Excess POC Sodium Sodium POC Potassium Potassium Chloride Carbon Dioxide POC BUN BUN Creatinine POC Creatinine Glucose POC Glucose NT-Pro-B Natriuret Pep Procalcitonin 10/14/22 10/14/22 10/14/22 22:17 15:34 13:14 WBC RBC Hgb Hct POC Hct Plt Count Immature Gran % (Auto) Neut % (Auto) Lymph % (Auto) Gordon % (Auto) Lymph # (Auto) Gordon # (Auto) Immature Gran # Absolute Neutrophils ESR POC VBG pH POC VBG pCO2 at Temp POC VBG pO2 POC VBG HCO3 POC VBG Total CO2 POC Venous O2 Sat POC VBG Base Excess POC Sodium Sodium 127 L 128 L POC Potassium Potassium 5.8 H 5.3 H Chloride 95 L Carbon Dioxide 21 L POC BUN BUN 47 H 46 H Creatinine 3.5 H 3.0 H POC Creatinine Glucose 177 H POC Glucose NT-Pro-B Natriuret Pep 1309.0 H Procalcitonin 10/14/22 10/14/22 10/14/22 11:22 10:03 09:53 WBC RBC 3.92 L Hgb 11.4 L Hct 35.1 L POC Hct 35.0 L Plt Count Immature Gran % (Auto) Neut % (Auto) Lymph % (Auto) Gordon % (Auto) Lymph # (Auto) Gordon # (Auto) 0.99 H Immature Gran # Absolute Neutrophils ESR POC VBG pH POC VBG pCO2 at Temp POC VBG pO2 POC VBG HCO3 POC VBG Total CO2 POC Venous O2 Sat POC VBG Base Excess POC Sodium 129 L Sodium POC Potassium 6.0 H* Potassium 5.2 H Chloride Carbon Dioxide POC BUN 55 H BUN Creatinine POC Creatinine 3.8 H Glucose POC Glucose 134 H NT-Pro-B Natriuret Pep 1168.0 H Procalcitonin Meds: Medications Acetaminophen (Acetaminophen 325 Mg Tablet) 650 mg PO Q6HP PRN; Protocol PRN Reason: Per Pain Protocol/Fever > 101 Albuterol/Ipratropium (Ipratropium/Albuterol 3 Ml Ampul.Neb) 3 ml NEB Q6HRT [facility] Last Admin: 10/16/22 08:21 Dose: 3 ml Aspirin (Aspirin 81 Mg Tab.Chew) 81 mg PO DAILY [facility] Last Admin: 10/16/22 08:34 Dose: 81 mg Budesonide (Budesonide 0.5 Mg/2 Ml Ampul.Neb) 0.5 mg NEB Q12 [facility] Last Admin: 10/16/22 08:21 Dose: 0.5 mg Diltiazem HCl (Diltiazem 30 Mg Tablet) 30 mg PO Q6 [facility] Last Admin: 10/16/22 05:10 Dose: 30 mg Docusate Sodium (Docusate Sodium 100 Mg Capsule) 100 mg PO BID [facility] Last Admin: 10/16/22 08:34 Dose: 100 mg Heparin Sodium (Porcine) (Heparin 5,000 Unit/Ml Vial) 5,000 unit SQ Q12 [facility] Last Admin: 10/16/22 08:34 Dose: 5,000 unit Lactated Ringer's (Lactated Ringers) 1,000 mls @ 75 mls/hr IV .[id number] [facility] Last Admin: 10/15/22 21:07 Dose: 75 mls/hr Lactulose (Lactulose 20 Gm/30 Ml Oral.Asya) 10 gm PO DAILYP PRN PRN Reason: Constipation Methylprednisolone Sodium Succinate (Methylprednisolone Sod Succ 125 Mg/2 Ml Vial) 80 mg IV Q8 [facility] Last Admin: 10/16/22 05:10 Dose: 80 mg Morphine Sulfate (Morphine 4 Mg/Ml Vial) 4 mg IV Q4HP PRN; Protocol PRN Reason: Per Pain Protocol Last Admin: 10/15/22 18:07 Dose: 4 mg Ondansetron HCl (Ondansetron 4 Mg/2 Ml Vial) 4 mg IV Q4HP PRN; Protocol PRN Reason: Nausea And Vomiting Oxycodone/Acetaminophen (Oxycodone/Apap 5/325mg Tablet) 1 tab PO Q4HP PRN; Protocol PRN Reason: Per Pain Protocol Last Admin: 10/16/22 05:17 Dose: 1 tab Senna (Sennosides 1 Tablet) 2 tab PO HSP PRN PRN Reason: Constipation Sodium Chloride (0.9 % Sodium Chloride 10 Ml Syringe) 10 ml IV Q8 [facility] Last Admin: 10/16/22 05:11 Dose: 10 ml A/P Assessment and plan (1) DVT (deep venous thrombosis): Status: Chronic Qualifiers: DVT location: lower extremity Affected thrombotic vein of extremity: popliteal Chronicity: acute Laterality: right Qualified Code(s): I82.431 - Acute embolism and thrombosis of right popliteal vein (2) ANJEL (obstructive sleep apnea): Status: Chronic (3) CAD (coronary artery disease) of bypass graft: Status: Chronic (4) CESILIA (acute kidney injury): Status: Acute (5) Hyperkalemia: Status: Acute (6) Chronic diastolic (congestive) heart failure: Status: Acute Narrative A/P Narrative: #Ground glass opacities -DDx: vasculitis vs pulmonary edema vs ILD/pulmonary fibrosis vs drug induced -Investigations: CT revealed 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 This may be due to UIP (usual interstitial pneumonia) or collagen vascular disease -Tx: would recommend holding amiodarone, trial duonebs/pulmicort + solu-medrol #HFpEF -The patient's volume status is difficult to assess given body habitus, but there may be component of CHF exacerbation given elevated JVD -Will repeat TTE-> preserved LVEF with no wall motion abnormalities no significant valvular heart disease -Tx: trial lasix 40mg IV x 1-> no evidence of CHF, as there was not clinical improvement. #CESILIA -Cr is up to 3.9 -multifactorial in etiology-> recent bactrim use, lisinopril, aldactone + ?cardiorenal syndrome -Tx: gently hydrate with IVF, nephrology is following -Hold nephrotoxic agents, renally dose meds #Below the knee DVT -Literature does not support anticoagulation, continue conservative tx #HyperK -Will continue to monitor-> will treat with Kayexalate, insulin and D5 -Continue telemetry #CAD -Continue ASA, patient is on red yeast extract instead of statin Time Spent With Patient Time: Total time spent is greater than 50% in coordination of care (as documented) at patient's floor/unit and/or counseling patient: Subsequent: Total time with patient: 25 - 34 minutes QUALITY VTE Deep Vein Thrombosis/Pulmonary Embolism Present on Admission: No
--- NOTE | 2022-10-16 10:30 | Ultrasound Report ---
History: Acute renal failure superimposed on chronic stage III kidney disease FINDINGS: The above the right kidney and along the inferior border of the right lobe of the liver there is a well-circumscribed mass which measures 8.7 x 12.1 cm. It is predominantly solid but does contain multi loculated pockets of fluid. Doppler shows there is some flow along the periphery. This is a chronic stable finding. On the prior CT scans it appeared to be predominantly cystic. There has been no growth comparing CT scans from 08/02/2018 through 10/14/2022. Although this has suspicious features on ultrasound, the stability over the past four years would suggest it is benign. Right kidney measures 4.4 x 5.8 x 12.2 cm left measures 5.1 x 6.3 x 12.3 cm. There is thinning of the renal cortex of left kidney and mild increased echogenicity in the cortex of both kidneys due to chronic medical renal disease. There are multiple cysts in both kidneys. At the upper pole the right kidney there is a 3.4 x 3.4 x 3.7 cm cyst. No solid components are seen. This had high attenuation on the CT scan performed yesterday. This may contain proteinaceous debris. Largest cyst in left kidney measures 5.1 x 4.9 x 5.7 cm. No solid mass is seen in either kidney. The nonobstructing left-sided kidney stones seen on yesterday's CT scan is not clearly identified on ultrasound. No hydronephrosis is present. There is flow of urine through both ureters into the bladder. The bladder contained 207 cc of urine. He was unable to void. IMPRESSION: Complex cystic mass along the inferior border of the right lobe of liver. The stability over the past four years would suggest it is benign. Multiple bilateral renal cysts and no evidence of renal tumor. Chronic medical renal disease in both kidneys with urine output bilaterally Large bladder and patient is unable to void. This may be related to prior treatment for prostate cancer. Interpreted and Authenticated by: Jose L Lawton 10/16/22
[2022-10-16] MEDS: LACTATED RINGERS 1,000 ML IV SCH (10:59)
[2022-10-16] MEDS ORDERED: ACETAMINOPHEN 325 MG TABLET PO PRN (13:38)
[2022-10-16] MEDS ORDERED: IBUPROFEN 800 MG TABLET PO PRN ×2 (13:39→13:45)
[2022-10-16] MEDS: morphine 4 MG/ML VIAL IV PRN (15:20)
[2022-10-16 19:04] LABS: Albumin 3.7 gm/dL (3.2-5.2); Blood Urea Nitrogen 69 mg/dL (8-23); Calcium 9.4 mg/dL (8.6-10.4); Carbon Dioxide 20 mmol/L (22-30); Chloride 91 mmol/L (96-108); Glomerular Filtration Rate 16; Glucose 144 mg/dL (70-105); Phosphorous 5.2 mg/dL (2.5-4.5)
[2022-10-17] MEDS: IPRATROPIUM/ALBUTEROL 3 ML AMPUL.NEB NEB SCH ×5 (01:07→23:54)
[2022-10-17] MEDS: LACTATED RINGERS 1,000 ML IV SCH (02:02)
[2022-10-17] MEDS: DILTIAZEM 30 MG TABLET PO SCH ×4 (05:23→23:54)
[2022-10-17] MEDS: methylPREDNISolone SOD SUCC 125 MG/2 ML VIAL IV SCH (05:24)
[2022-10-17] MEDS: 0.9 % SODIUM CHLORIDE 10 ML SYRINGE IV SCH ×3 (05:24→20:00)
[2022-10-17 06:41] LABS: Basophils # (Auto) 0.01 K/mcL (0.00-0.30); Basophils % (Auto) 0.1 % (0.0-2.0); Eosinophils # (Auto) 0.01 K/mcL (0.00-0.70); Eosinophils % (Auto) 0.1 % (0.0-7.0); Hematocrit 31.6 % (40.1-51.0); Hemoglobin 10.2 g/dL (13.7-17.5); Lymphocytes # (Auto) 0.71 K/mcL (1.50-4.80); Lymphocytes % (Auto) 7.2 % (15.5-49.0); Mean Cell Volume 90.5 fL (80.0-100.0); Mean Corpuscular HGB Conc 32.3 g/dL (31.0-36.0); Mean Platelet Volume 9.2 fL (8.8-12.5); Monocytes # (Auto) 0.19 K/mcL (0.10-0.90); Monocytes % (Auto) 1.9 % (1.0-12.0); Neutrophils % (Auto) 89.9 % (38.0-78.0); Platelet Count 385 K/mcL (140-440); RBC 3.49 M/mcL (4.63-6.08); Red Cell Distribution Width 12.5 % (11.5-14.5); WBC 9.8 K/mcL (4.5-11.0)
[2022-10-17 07:06] LABS: ALT/SGPT 11 U/L (<40); AST/SGOT 17 U/L (<40); Albumin 3.3 gm/dL (3.2-5.2); Albumin/Globulin Ratio 1.7 (1.0-2.3); Alkaline Phosphatase 66 U/L (39-117); Bilirubin,Total 0.2 mg/dL (0.1-1.0); Blood Urea Nitrogen 67 mg/dL (8-23); Calcium 8.8 mg/dL (8.6-10.4); Carbon Dioxide 23 mmol/L (22-30); Chloride 93 mmol/L (96-108); Globulin 1.9 gm/dL (2.2-3.7); Glomerular Filtration Rate 20; Glucose 129 mg/dL (70-105)
[2022-10-17] MEDS: BUDESONIDE 0.5 MG/2 ML AMPUL.NEB NEB SCH ×2 (07:26→18:32)
--- NOTE | 2022-10-17 08:45 | Nephrology Progress Note ---
SUBJECTIVE Subjective Patient information: Note initiated : 10/17/22 at 8:43 am Patient: Wilbert Gregg 72 y/o M admitted on 10/14/22 for n/a. Chief Complaint: Weakness Principal diagnosis: New CT pulmonary abnormalities, ARF on CKD G3, electrolye abnormalies Pertinent ROS: Weakness Edema No Dyer catheter reports more urine output Constitutional Vitals: Vital Signs Temp Pulse Resp BP Pulse Ox O2 Del Method 98.4 F 87 16 113/41 94 10/17/22 04:01 10/17/22 07:28 10/17/22 07:28 10/17/22 07:09 10/17/22 07:28 10/17/22 07:28 Period Temp Pulse Resp BP Sys/Pineda Pulse Ox O2 Del Method O2 Flow Rate Last 24 Hr 97.6 F-98.4 F 62-93 16-20 113-156/41-68 91-100 Room Air-Room Air Intake and Output 10/16/22 10/17/22 10/17/22 19:59 03:59 11:59 Intake Total 390 1000 360 Output Total 505 775 875 Balance -115 225 -515 Weight 213 lb 3.2 oz Intake & Output: Intake & Output 10/16/22 10/17/22 10/17/22 19:59 03:59 11:59 Intake Total 390 1000 360 Output Total 505 775 875 Balance -115 225 -515 Weight 213 lb 3.2 oz Intake: IV 1000 Lactated Ringers 1,000 ml @ 75 1000 mls/hr IV .[id number] [facility] Rx#: [id number] Oral 390 360 Output: Void Amount 505 775 875 Other: Meal Dinner Percent of Meal Consumed 100% Urine Appearance Clear Clear Clear Urine Color Yellow Pale Yellow General appearance: cooperative and no acute distress Head Head exam: Present normal inspection Eye Eye exam: Present normal appearance ENT ENT exam: Present mucous membranes moist Respiratory Respiratory exam: Absent respiratory distress Cardiovascular Cardiovascular exam: Present normal rate and rhythm GI/Abdominal GI/Abdominal exam: Present soft; Absent tenderness Extremities Exam Extremities exam: Present pedal edema; Absent joint swelling Neurological Exam Neurological exam: Present alert and oriented X3 Psychiatric Psychiatric exam: Present normal affect and normal mood Skin Skin exam: Present warm; Absent rash A/P Assessment and plan (1) Acute renal failure superimposed on stage 3b chronic kidney disease: Assessment and plan: Wilbert Gregg is a 72-year-old male with coronary artery disease s/p CABG and stents, chronic systolic heart failure, paroxysmal atrial fibrillation on Coumadin anticoagulation, hypertension, chronic obstructive pulmonary disease, chronic kidney disease stage 3b, history of CVA, lumbar radiculopathy s/p fusion admitted on 10/14/22. The patient was seen twice by [facility] at urgent care/clinic last week. First time, he was diagnosed with UTI and prescribed Bactrim. Second time, he was diagnosed with bronchitis. Acute kidney injury, likely acute tubular necrosis associated with shock on chronic kidney disease stage 3b with initial hyperkalemia, metabolic acidosis and hyponatremia, present on arrival. There is no recent history of IV contrast administration. Etiology is likely Lisinopril + Spironolactone + TMP/SMX + NS AID use. Work up: Urinalysis on 10/07/22: Yellow, Clear, pH 7.0, SG 1.020, protein negative, blood negative, leukocyte esterase negative. Urine Sodium on 10/15/22: 29 mmol/L. Urine random microalbumin/creatinine on 10/15/22: 4.0/171.6 mg/mg creatinine. Labs on 10/15/22: C3 124.6, C4 35.3. Renal US on 10/16/22: Complex cystic mass along the inferior border of the right lobe of liver. The stability over the past four years would suggest it is benign. Multiple bilateral renal cysts and no evidence of renal tumor. Chronic medical renal disease in both kidneys with urine output bilaterally. Large bladder and patient is unable to void. This may be related to prior treatment for prostate cancer. CT Abdomen and Pelvis without contrast on 10/14/22: 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 This may be due to UIP (usual interstitial pneumonia) or collagen vascular disease. Old granulomatous disease. No evidence of pneumonia or lung mass. Stable hepatic and renal cysts. No acute abnormality in the abdomen or pelvis. No evidence of metastasis of the patient's prostate cancer. Progress: Serum creatinine decreased from 3.5 to 3.0 in the past 12 hours. Baseline serum creatinine: 1.1-1.2 in 2019, 1.4-1.8 in 2020, 1.9-2.1 in 2021. Urine output: 875 ml reported in the past 24 hours. Metabolic acidosis, resolved. Hyponatremia, moderate persistent. Hyperkalemia, persistent. Fluid overload. I/O: +2.3 L since admit. Bilateral lower extremity edema. No uremic symptoms. Recommendations/Plan: LR discontinued due to hyperkalemia and fluid overload. Furosemide may be considered. No urgent acute hemodialysis need. Avoid NSAIDs, nephrotoxic medications and IV contrast. Monitor BMP and urine output. Status: Acute (2) Hyperkalemia: Status: Acute (3) Hyponatremia: Status: Acute Time Spent With Patient Time: Total time spent is greater than 50% in coordination of care (as documented) at patient's floor/unit and/or counseling patient:
[2022-10-17] MEDS ORDERED: AMIODARONE HCL 200 MG TABLET PO SCH (09:00)
[2022-10-17] MEDS: oxyCODONE/APAP 5/325MG TABLET PO PRN (09:24)
[2022-10-17] MEDS: ASPIRIN 81 MG TAB.CHEW PO SCH (09:24)
[2022-10-17] MEDS: HEPARIN 5,000 UNIT/ML VIAL SQ SCH ×2 (09:25→19:59)
[2022-10-17] MEDS: LACTULOSE 20 GM/30 ML ORAL.SOL PO PRN (09:25)
[2022-10-17] MEDS: DOCUSATE SODIUM 100 MG CAPSULE PO SCH ×2 (09:25→19:59)
[2022-10-17] MEDS ORDERED: BACLOFEN 10 MG TABLET PO PRN (10:32)
--- NOTE | 2022-10-17 10:39 | Internal Med Progress Note ---
SUBJECTIVE Subjective Patient information: Note initiated : 10/17/22 at 10:35 am Service Date, if different from initiated Date: [] Patient: Wilbert Gregg 72 y/o M admitted on 10/14/22 for n/a. Chief Complaint: [] Principal diagnosis: New CT pulmonary abnormalities, ARF on CKD G3, electrolye abnormalies Interval history: 10/17: Patient is currently tolerating room air. BUN/Cr/K 67/3.0/5.6, respectively. Saline lock. Patient is tolerating oral feeding fine with no nausea or vomiting. Patient is walking fine on the hallway. With downgrade patient to [facility] with telemetry. DC systemic steroid Solu- Medrol. Continue DuoNeb and Pulmicort for pulmonary fibrosis. Continue to saline lock and encourage oral intake while monitoring kidney functions with serial chemistry. Lasix 20 Mg p.o. twice daily for slight fluid overload. Continue to work with nephrology regarding acute kidney injury. Continue to hold nephrotoxic agents such as NSAID and amiodarone and Bactrim. Snyder/Morphine/Baclofen PRN back/leg pain. Constitutional Vitals: Vital Signs Temp Pulse Resp BP Pulse Ox O2 Del Method 37.2 C 91 H 16 146/68 93 10/17/22 08:01 10/17/22 10:28 10/17/22 07:28 10/17/22 10:28 10/17/22 10:28 10/17/22 10:28 Period Temp Pulse Resp BP Sys/Pineda Pulse Ox O2 Del Method O2 Flow Rate Last 24 Hr 36.4 C-37.2 C 62-93 16-20 113-156/41-68 91-99 Room Air-Room r Intake and Output 10/16/22 10/17/22 10/17/22 19:59 03:59 11:59 Intake Total 390 1000 1155 Output Total 505 775 875 Balance -115 225 280 Weight 96.706 kg Intake & Output: Intake & Output 10/16/22 10/17/22 10/17/22 19:59 03:59 11:59 Intake Total 390 1000 1155 Output Total 505 775 875 Balance -115 225 280 Weight 96.706 kg Intake: Nourishment/Supplement quantity 120 (ml) IV 1000 555 Lactated Ringers 1,000 ml @ 75 1000 555 mls/hr IV .[id number] [facility] Rx#: [id number] Oral 390 480 Output: Void Amount 505 775 875 Other: Meal Dinner Breakfast Percent of Meal Consumed 100% 100% Feeding Ability Independent Nourishment/Supplement name nepro Urine Appearance Clear Clear Clear Urine Color Yellow Pale Yellow Head Head exam: Present atraumatic and normal inspection Eye Eye exam: Present normal appearance ENT ENT exam: Present mucous membranes moist, normal exam and normal external ear exam Neck Neck exam: Present normal inspection Respiratory Respiratory exam: Present normal respiratory exam Cardiovascular Cardiovascular exam: Present normal rate and rhythm GI/Abdominal GI/Abdominal exam: Present normal bowel sounds Back Exam Back exam: Present normal inspection Neurological Exam Neurological exam: Present alert and oriented X3 Skin Skin exam: Present intact and warm OBJ DATA Labs CBC & Chem 7: 10/17/22 05:05 10/17/22 05:05 Labs: Abnormal Lab Results 10/17/22 10/17/22 10/16/22 05:05 05:05 18:05 WBC RBC 3.49 L Hgb 10.2 L Hct 31.6 L Plt Count Immature Gran % (Auto) 0.8 H Neut % (Auto) 89.9 H Lymph % (Auto) 7.2 L Harrison % (Auto) Lymph # (Auto) 0.71 L Harrison # (Auto) Immature Gran # 0.08 H Absolute Neutrophils 8.80 H ESR POC VBG pH POC VBG pCO2 at Temp POC VBG pO2 POC VBG HCO3 POC VBG Total CO2 POC Venous O2 Sat POC VBG Base Excess Sodium 126 L 126 L Potassium 5.6 H 5.5 H Chloride 93 L 91 L Carbon Dioxide 20 L BUN 67 H 69 H Creatinine 3.0 H 3.5 H Glucose 129 H 144 H Phosphorus 5.2 H NT-Pro-B Natriuret Pep Total Protein 5.2 L Globulin 1.9 L Procalcitonin 10/16/22 10/16/22 10/15/22 08:00 05:12 13:20 WBC RBC Hgb Hct Plt Count Immature Gran % (Auto) Neut % (Auto) Lymph % (Auto) Harrison % (Auto) Lymph # (Auto) Harrison # (Auto) Immature Gran # Absolute Neutrophils ESR POC VBG pH 7.45 H POC VBG pCO2 at Temp 28.7 L POC VBG pO2 53 H POC VBG HCO3 19.9 L POC VBG Total CO2 21.0 L POC Venous O2 Sat 89.0 H POC VBG Base Excess -4.0 L Sodium 126 L Potassium 6.5 H* Chloride 93 L Carbon Dioxide 21 L BUN 68 H Creatinine 3.8 H Glucose 137 H Phosphorus NT-Pro-B Natriuret Pep 3772.0 H Total Protein Globulin Procalcitonin 10/15/22 10/15/22 10/15/22 10:57 10:57 10:57 WBC RBC Hgb Hct Plt Count Immature Gran % (Auto) Neut % (Auto) Lymph % (Auto) Harrison % (Auto) Lymph # (Auto) Harrison # (Auto) Immature Gran # Absolute Neutrophils ESR 52 H POC VBG pH POC VBG pCO2 at Temp POC VBG pO2 POC VBG HCO3 POC VBG Total CO2 POC Venous O2 Sat POC VBG Base Excess Sodium 127 L Potassium 5.5 H Chloride 93 L Carbon Dioxide 20 L BUN 55 H Creatinine 3.7 H Glucose 230 H Phosphorus NT-Pro-B Natriuret Pep Total Protein Globulin Procalcitonin 0.15 H 10/15/22 10/15/22 10/15/22 10:57 06:13 06:12 WBC 13.9 H RBC 4.13 L 3.98 L Hgb 12.4 L 11.7 L Hct 37.2 L 35.7 L Plt Count 452 H Immature Gran % (Auto) 0.6 H 0.8 H Neut % (Auto) 95.8 H 92.5 H Lymph % (Auto) 3.0 L 6.0 L Harrison % (Auto) 0.5 L 0.6 L Lymph # (Auto) 0.41 L 0.63 L Harrison # (Auto) 0.07 L 0.06 L Immature Gran # 0.08 H 0.08 H Absolute Neutrophils 13.29 H 9.67 H ESR 32 H POC VBG pH POC VBG pCO2 at Temp POC VBG pO2 POC VBG HCO3 POC VBG Total CO2 POC Venous O2 Sat POC VBG Base Excess Sodium Potassium Chloride Carbon Dioxide BUN Creatinine Glucose Phosphorus NT-Pro-B Natriuret Pep Total Protein Globulin Procalcitonin 10/14/22 10/14/22 10/14/22 22:17 15:34 13:14 WBC RBC Hgb Hct Plt Count Immature Gran % (Auto) Neut % (Auto) Lymph % (Auto) Harrison % (Auto) Lymph # (Auto) Harrison # (Auto) Immature Gran # Absolute Neutrophils ESR POC VBG pH POC VBG pCO2 at Temp POC VBG pO2 POC VBG HCO3 POC VBG Total CO2 POC Venous O2 Sat POC VBG Base Excess Sodium 127 L 128 L Potassium 5.8 H 5.3 H Chloride 95 L Carbon Dioxide 21 L BUN 47 H 46 H Creatinine 3.5 H 3.0 H Glucose 177 H Phosphorus NT-Pro-B Natriuret Pep 1309.0 H Total Protein Globulin Procalcitonin 10/14/22 10/14/22 11:22 10:03 WBC RBC 3.92 L Hgb 11.4 L Hct 35.1 L Plt Count Immature Gran % (Auto) Neut % (Auto) Lymph % (Auto) Harrison % (Auto) Lymph # (Auto) Harrison # (Auto) 0.99 H Immature Gran # Absolute Neutrophils ESR POC VBG pH POC VBG pCO2 at Temp POC VBG pO2 POC VBG HCO3 POC VBG Total CO2 POC Venous O2 Sat POC VBG Base Excess Sodium Potassium 5.2 H Chloride Carbon Dioxide BUN Creatinine Glucose Phosphorus NT-Pro-B Natriuret Pep 1168.0 H Total Protein Globulin Procalcitonin Meds: Medications Acetaminophen (Acetaminophen 325 Mg Tablet) 650 mg PO Q4H PRN PRN Reason: Pain Hydrocodone Bitart/Acetaminophen (Hydrocodone/Apap 10/325mg Tablet) 1 tab PO Q6H PRN; Protocol PRN Reason: Pain Albuterol/Ipratropium (Ipratropium/Albuterol 3 Ml Ampul.Neb) 3 ml NEB Q6HRT [facility] Last Admin: 10/17/22 07:26 Dose: 3 ml Aspirin (Aspirin 81 Mg Tab.Chew) 81 mg PO DAILY [facility] Last Admin: 10/17/22 09:24 Dose: 81 mg Baclofen (Baclofen 10 Mg Tablet) 10 mg PO TIDP PRN PRN Reason: Muscle Spasticity Budesonide (Budesonide 0.5 Mg/2 Ml Ampul.Neb) 0.5 mg NEB Q12 [facility] Last Admin: 10/17/22 07:26 Dose: 0.5 mg Diltiazem HCl (Diltiazem 30 Mg Tablet) 30 mg PO Q6 [facility] Last Admin: 10/17/22 05:23 Dose: 30 mg Docusate Sodium (Docusate Sodium 100 Mg Capsule) 100 mg PO BID [facility] Last Admin: 10/17/22 09:25 Dose: 100 mg Furosemide (Furosemide 20 Mg Tablet) 20 mg PO BIDD [facility] Heparin Sodium (Porcine) (Heparin 5,000 Unit/Ml Vial) 5,000 unit SQ Q12 [facility] Last Admin: 10/17/22 09:25 Dose: 5,000 unit Lactulose (Lactulose 20 Gm/30 Ml Oral.Asya) 10 gm PO DAILYP PRN PRN Reason: Constipation Last Admin: 10/17/22 09:25 Dose: 10 gm Morphine Sulfate (Morphine 4 Mg/Ml Vial) 4 mg IV Q4HP PRN; Protocol PRN Reason: Per Pain Protocol Last Admin: 10/16/22 15:20 Dose: 4 mg Ondansetron HCl (Ondansetron 4 Mg/2 Ml Vial) 4 mg IV Q4HP PRN; Protocol PRN Reason: Nausea And Vomiting Last Admin: 10/16/22 12:02 Dose: 4 mg Oxycodone/Acetaminophen (Oxycodone/Apap 5/325mg Tablet) 1 tab PO Q4HP PRN; Protocol PRN Reason: Per Pain Protocol Last Admin: 10/17/22 09:24 Dose: 1 tab Senna (Sennosides 1 Tablet) 2 tab PO HSP PRN PRN Reason: Constipation Sodium Chloride (0.9 % Sodium Chloride 10 Ml Syringe) 10 ml IV Q8 [facility] Last Admin: 10/17/22 05:24 Dose: 10 ml A/P Assessment and plan (1) (HFpEF) heart failure with preserved ejection fraction: Status: Acute (2) Pulmonary fibrosis: Status: Acute (3) Acute renal failure superimposed on stage 3b chronic kidney disease: Status: Acute (4) Anemia, normocytic normochromic: Status: Acute (5) Pulmonary interstitial fibrosis: Status: Acute Comment: New since 2019. Suspect amiodarone but many other possibilities including covid vaccination adverse reaction. Bioinflammatory markers pending but cannot do radionuclide scan (6) DVT (deep venous thrombosis): Status: Chronic Qualifiers: DVT location: lower extremity Affected thrombotic vein of extremity: popliteal Chronicity: acute Laterality: right Qualified Code(s): I82.431 - Acute embolism and thrombosis of right popliteal vein (7) Hx of CABG: Status: Chronic Comment: 5 heart attacks (8) CAD (coronary artery disease) of bypass graft: Status: Chronic (9) ANJEL (obstructive sleep apnea): Status: Chronic Narrative A/P Narrative: Assessment and Plans: 1. Pulmonary fibrosis: Transfer to med surg telemetry Supplemental oxygen therapy as needed d/c systemic steroid Solu-Medrol Continue DuoNEB NEB Continue Pulmicort Physical therapy evaluation and treatment 2. Acute on chronic kidney injury with hyperkalemia: Consulting nephrology, recs. appreciated Saline lock with oral Lasix Serial chemistry to monitor potassium level and kidney functions Avoid nephrotoxic agents such as NSAIDs, Bactrim, Amiodarone, Lisinopril, Aldactone 3. Left calf DVT: Anticoagulation not indicated 4. h/o HFpEF: Seems to be stable Saline lock with oral Lasix 5. Anemia, normocytic normochromic: cbc w/ auto diff in the morning to trend H/H 6. h/o CAD s/p CABGX5: Aspirin Red yeast extract 7. h/o Obstructive sleep apnea: Stable, not on CPAP GI ppx: not currently indicated DVT ppx: Heparin Code status: Full Prognosis: guarded Disposition: inpatient med surg tele; PT Time Spent With Patient Time: Total time spent is greater than 50% in coordination of care (as documented) at patient's floor/unit and/or counseling patient: Subsequent: Total time with patient: 35 - 49 minutes QUALITY VTE Deep Vein Thrombosis/Pulmonary Embolism Present on Admission: No
[2022-10-17] MEDS: FUROSEMIDE 20 MG TABLET PO SCH (16:28)
[2022-10-17] MEDS: OMEPRAZOLE 20 MG CAPSULE PO SCH (19:59)
[2022-10-17] MEDS: HYDROcodone/APAP 10/325MG TABLET PO PRN (20:00)
[2022-10-18] MEDS: DILTIAZEM 30 MG TABLET PO SCH ×2 (05:42→11:38)
[2022-10-18] MEDS: 0.9 % SODIUM CHLORIDE 10 ML SYRINGE IV SCH ×2 (05:42→12:04)
[2022-10-18 07:10] LABS: ALT/SGPT 18 U/L (<40); AST/SGOT 19 U/L (<40); Albumin 3.3 gm/dL (3.2-5.2); Albumin/Globulin Ratio 1.9 (1.0-2.3); Alkaline Phosphatase 66 U/L (39-117); Basophils # (Auto) 0.01 K/mcL (0.00-0.30); Basophils % (Auto) 0.1 % (0.0-2.0); Bilirubin,Total 0.2 mg/dL (0.1-1.0); Blood Urea Nitrogen 61 mg/dL (8-23); Calcium 8.9 mg/dL (8.6-10.4); Carbon Dioxide 25 mmol/L (22-30); Chloride 94 mmol/L (96-108); Eosinophils # (Auto) 0 K/mcL (0.00-0.70); Eosinophils % (Auto) 0 % (0.0-7.0); Globulin 1.7 gm/dL (2.2-3.7); Glomerular Filtration Rate 29; Glucose 108 mg/dL (70-105); Hematocrit 30.8 % (40.1-51.0); Hemoglobin 10.2 g/dL (13.7-17.5); Lymphocytes # (Auto) 0.76 K/mcL (1.50-4.80); Lymphocytes % (Auto) 7.7 % (15.5-49.0); Mean Cell Volume 89.3 fL (80.0-100.0); Mean Corpuscular HGB Conc 33.1 g/dL (31.0-36.0); Monocytes # (Auto) 0.68 K/mcL (0.10-0.90); Monocytes % (Auto) 6.9 % (1.0-12.0); Neutrophils % (Auto) 84.6 % (38.0-78.0); Platelet Count 436 K/mcL (140-440); RBC 3.45 M/mcL (4.63-6.08); Red Cell Distribution Width 12.3 % (11.5-14.5); WBC 9.8 K/mcL (4.5-11.0)
--- NOTE | 2022-10-18 07:26 | Nephrology Progress Note ---
SUBJECTIVE Subjective Patient information: Note initiated : 10/18/22 at 7:21 am Patient: Wilbert Gregg 72 y/o M admitted on 10/14/22 for n/a. Chief Complaint: Weakness Principal diagnosis: New CT pulmonary abnormalities, ARF on CKD G3, electrolye abnormalies Pertinent ROS: Feels better Lower extremity edema Constitutional Vitals: Vital Signs Temp Pulse Resp BP Pulse Ox O2 Del Method 97.7 F 86 16 133/68 97 10/18/22 04:00 10/18/22 04:00 10/18/22 04:00 10/18/22 04:00 10/18/22 04:00 10/18/22 04:00 Period Temp Pulse Resp BP Sys/Pineda Pulse Ox O2 Del Method O2 Flow Rate Last 24 Hr 97.7 F-99.0 F 86-97 16-18 129-154/54-68 92-97 Room Air-Room Air Intake and Output 10/17/22 10/18/22 10/18/22 19:59 03:59 11:59 Intake Total 300 900 50 Output Total 600 650 690 Balance -300 250 -640 Weight 214 lb Intake & Output: Intake & Output 10/17/22 10/18/22 10/18/22 19:59 03:59 11:59 Intake Total 300 900 50 Output Total 600 650 690 Balance -300 250 -640 Weight 214 lb Intake: Nourishment/Supplement quantity 120 (ml) Oral 180 900 50 Output: Urine Catheter Amount 300 Void Amount 600 350 690 Other: Meal Dinner Percent of Meal Consumed 50% Feeding Ability Independent Nourishment/Supplement name Nepro Urine Appearance Clear Clear Clear Urine Color Yellow Yellow Yellow Pale Urine Odor Normal Stool Size Small Stool Color Brown Stool Consistency Soft # Bowel Movements 1 General appearance: cooperative and no acute distress Head Head exam: Present normal inspection Eye Eye exam: Present normal appearance ENT ENT exam: Present mucous membranes moist Respiratory Respiratory exam: Absent respiratory distress Cardiovascular Cardiovascular exam: Present normal rate and rhythm GI/Abdominal GI/Abdominal exam: Present soft; Absent tenderness Extremities Exam Extremities exam: Present pedal edema; Absent joint swelling Neurological Exam Neurological exam: Present alert and oriented X3 Psychiatric Psychiatric exam: Present normal affect and normal mood Skin Skin exam: Present warm; Absent rash A/P Assessment and plan (1) Acute renal failure superimposed on stage 3b chronic kidney disease: Assessment and plan: Wilbert Gregg is a 72-year-old male with coronary artery disease s/p CABG and stents, chronic systolic heart failure, paroxysmal atrial fibrillation on Coumadin anticoagulation, hypertension, chronic obstructive pulmonary disease, chronic kidney disease stage 3b, history of CVA, lumbar radiculopathy s/p fusion admitted on 10/14/22. The patient was seen twice by PROJECT CONSTRUCTION ASSISTANT MANAGER at urgent care/clinic last week. First time, he was diagnosed with UTI and prescribed Bactrim. Second time, he was diagnosed with bronchitis. Acute kidney injury on chronic kidney disease stage 3b with initial hyperkalemia, metabolic acidosis and hyponatremia, present on arrival, resolving. There is no recent history of IV contrast administration. Etiology is likely Lisinopril + Spironolactone + TMP/SMX + NSAID use. Work up: Urinalysis on 10/07/22: Yellow, Clear, pH 7.0, SG 1.020, protein negative, blood negative, leukocyte esterase negative. Urine Sodium on 10/15/22: 29 mmol/L. Urine random microalbumin/creatinine on 10/15/22: 4.0/171.6 mg/mg creatinine. Labs on 10/15/22: C3 124.6, C4 35.3. Renal US on 10/16/22: Complex cystic mass along the inferior border of the right lobe of liver. The stability over the past four years would suggest it is benign. Multiple bilateral renal cysts and no evidence of renal tumor. Chronic medical renal disease in both kidneys with urine output bilaterally. Large bladder and patient is unable to void. This may be related to prior treatment for prostate cancer. CT Abdomen and Pelvis without contrast on 10/14/22: 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 This may be due to UIP (usual interstitial pneumonia) or collagen vascular disease. Old granulomatous disease. No evidence of pneumonia or lung mass. Stable hepatic and renal cysts. No acute abnormality in the abdomen or pelvis. No evidence of metastasis of the patient's prostate cancer. Progress: Serum creatinine decreased from 3.0 to 2.2 in the past 24 hours. Baseline serum creatinine: 1.1-1.2 in 2019, 1.4-1.8 in 2020, 1.9-2.1 in 2021. Urine output: 2150 ml reported in the past 24 hours. Metabolic acidosis, resolved. Hyponatremia, moderate, improved. Hyperkalemia, resolved. Fluid overload. I/O: +2.17 L since admit. Weight : +8 lbs since admit. Bilateral lower extremity edema. No uremic symptoms. Discharge recommendations: Nephrology will sign off. Hold Lisinopril and Spironolactone until follow up. Avoid TMP/SMX or NSAID use. PCP follow up in 1 week with BMP. Nephrology follow up if needed. Status: Acute (2) Hyperkalemia: Status: Acute (3) Hyponatremia: Status: Acute Time Spent With Patient Time: Total time spent is greater than 50% in coordination of care (as documented) at patient's floor/unit and/or counseling patient:
[2022-10-18] MEDS: HEPARIN 5,000 UNIT/ML VIAL SQ SCH (08:06)
[2022-10-18] MEDS: ASPIRIN 81 MG TAB.CHEW PO SCH (08:07)
[2022-10-18] MEDS: DOCUSATE SODIUM 100 MG CAPSULE PO SCH (08:07)
[2022-10-18] MEDS: OMEPRAZOLE 20 MG CAPSULE PO SCH (08:07)
[2022-10-18] MEDS: FUROSEMIDE 20 MG TABLET PO SCH ×2 (08:08→15:41)
[2022-10-18] MEDS: LACTULOSE 20 GM/30 ML ORAL.SOL PO PRN (08:14)
[2022-10-18] MEDS ORDERED: RED YEAST RICE 600 MG PO SCH (09:00)
[2022-10-18] MEDS ORDERED: FISH OIL 1,000 MG CAPSULE PO SCH (09:00)
[2022-10-18] MEDS: BUDESONIDE 0.5 MG/2 ML AMPUL.NEB NEB SCH (09:03)
[2022-10-18] MEDS: IPRATROPIUM/ALBUTEROL 3 ML AMPUL.NEB NEB SCH ×2 (09:03→13:40)
[2022-10-18] MEDS: HYDROcodone/APAP 10/325MG TABLET PO PRN (09:33)
--- NOTE | 2022-10-18 14:09 | Discharge Summary ---
Discharge Provider Provider IMPORTANT FOLLOW-UP INFORMATION FOR PCP: Patient information: Note initiated : 10/18/22 at 2:03 pm Service Date, if different from initiated Date: [] Patient: Wilbert Gregg 72 y/o M admitted on 10/14/22 for n/a. Chief Complaint: [] Date of admission: 10/14/22 14:40 Discharge date: 10/18/22 Primary care physician: Liu Roach MD Attending physician on admission: Titi Hoskins Consults: 10/14/22 12:44 Consult to Physician [CONS] Stat Comment: Consulting Provider: Thomas Martinez Reason For Exam: Physician to Consult Consult to Physician [CONS] Stat Comment: Consulting Provider: Jeevan Liu Reason For Exam: Physician to Consult Attending physician on discharge: Titi Flores Gato COURSE Hospital Course Hospital course: Patient was admitted on 10/14/22 for acute on chronic kidney injury. In Flight Refueling Craftsman was consulted, nephrotoxic medications were held, gentle IV fluid as hydration was given, and kidney functions were closely monitor. He also had hyperkalemia, and his serum potassium levels were closely trended. By 10/18/22, his electrolyte imbalance and renal injuries had resolved, and he had reached clinical stability. As a results, the decision was made to discharge him home with changes in his home medications made. Instruction to follow up with PCP given to him. All questions were answered prior to patient being physically discharged. Discharge diagnosis: Acute on chronic kidney injury; hyperkalemia Time Spent with Patient Time attestation: Total time spent providing and/or coordinating discharge services: Time spent: Less than 30 minutes EXAM Constitutional Vitals: Temp Pulse Resp BP Pulse Ox O2 Del Method 36.6 C 79 18 131/66 97 10/18/22 11:42 10/18/22 11:42 10/18/22 11:42 10/18/22 11:42 10/18/22 11:42 10/18/22 11:42 General appearance: cooperative and no acute distress Head Head exam: Present atraumatic and normocephalic Eye Eye exam: Present EOMI and PERRL ENT ENT exam: Present mucous membranes moist, normal exam and normal external ear exam Neck Neck exam: Present normal inspection; Absent lymphadenopathy, tenderness or thyromegaly Respiratory Respiratory exam: Absent accessory muscle use, respiratory distress or wheezes Cardiovascular Cardiovascular exam: Present normal rate and rhythm; Absent JVD GI/Abdominal GI/Abdominal exam: Present normal bowel sounds and soft; Absent organomegaly or tenderness Rectal Rectal exam: Present deferred Extremities Exam Extremities exam: Present full ROM, normal capillary refill and normal inspection; Absent tenderness Neurological Exam Neurological exam: Present alert, CN II-XII intact and oriented X3; Absent motor sensory deficit Psychiatric Psychiatric exam: Present normal affect and normal mood; Absent anxious or depressed Skin Skin exam: Present dry and intact Discharge Data Data Completed and Pending Labs on day of discharge: Labs from last 24 hours 10/18/22 10/18/22 05:09 05:09 WBC 9.8 RBC 3.45 L Hgb 10.2 L Hct 30.8 L MCV 89.3 MCH 29.6 MCHC 33.1 RDW 12.3 Plt Count 436 MPV 10.0 Immature Gran % (Auto) 0.7 H Neut % (Auto) 84.6 H Lymph % (Auto) 7.7 L Hopkins % (Auto) 6.9 Eos % (Auto) 0 Baso % (Auto) 0.1 Lymph # (Auto) 0.76 L Hopkins # (Auto) 0.68 Eos # (Auto) 0 Baso # (Auto) 0.01 Immature Gran # 0.07 H Absolute Neutrophils 8.32 H Sodium 129 L Potassium 4.8 Chloride 94 L Carbon Dioxide 25 Anion Gap 10.0 BUN 61 H Creatinine 2.2 H GFR Calculation 29 Glucose 108 H Calcium 8.9 Total Bilirubin 0.2 AST 19 ALT 18 Alkaline Phosphatase 66 Total Protein 5.0 L Albumin 3.3 Globulin 1.7 L Albumin/Globulin Ratio 1.9 Discharge Plan Patient/Caregiver Discharge Instructions Prescriptions: Continued (DME) Nocturnal Oxygen See Rx Instructions .Route .MEDSUPPLY Qty: 1 0RF Rx Instructions: 2L nocturnal nitroglycerin 0.4 mg tablet, sublingual 0.4 mg SUBLINGUAL Q5-15M PRN (Reason: chest pain) Qty: 25 1RF Rx Instructions: can repeat every 5 min up to 3 doses omeprazole 20 mg capsule,delayed release(DR/EC) 20 mg PO BID Qty: 60 4RF cilostazol 50 mg tablet 50 mg PO BID aspirin 81 mg tablet,delayed release (DR/EC) 81 mg PO QDAY diltiazem HCl 120 mg capsule,extended release 24 hr 120 mg PO QDAY hydralazine 100 mg tablet 100 mg PO BID Qty: 180 4RF Breztri Aerosphere 160-9-4.8 mcg/actuation HFA aerosol inhaler 1 inh inhalation PRN PRN (Reason: Shortness Of Breath) 0RF diltiazem HCl 30 mg tablet 30 mg PO Q4HP PRN (Reason: Tachycardia) hydrocodone-acetaminophen 10-325 mg tablet 1 tab PO Q6H PRN (Reason: Pain) acetaminophen 325 mg Tablet 650 mg PO Q4H PRN (Reason: Pain) red yeast rice 600 mg capsule 600 mg PO QDAY Rx Instructions: 1 po Qday omega 2-fjr-xlg-fish oil [Fish Oil] 1,000 mg (120 mg-180 mg) capsule 1 cap PO QDAY Rx Instructions: 1 po Qday Discontinued lisinopril 5 mg tablet 5 mg PO QDAY Qty: 90 1RF spironolactone 25 mg tablet 25 mg PO QDAY sulfamethoxazole-trimethoprim [Bactrim DS] 800-160 mg tablet 1 tab PO BID Qty: 14 0RF Rx Instructions: Patient had only 1 dose left amiodarone 200 mg tablet 1 tab PO QDAY ibuprofen 200 mg Capsule 800 mg PO Q8H PRN (Reason: Pain) Follow Up Plan Follow up with: Liu Roach MD [Primary Care Provider] - Patient Disposition: Home, Self-Care Rehab Potential: Good I certify that the patient requires SNF services: No Overall status at discharge: patient is back to baseline Discharge Orders: Discharge Order (Routine); Ordered 10/18/22 Ordered By: Titi ALFRED VTE Deep Vein Thrombosis/Pulmonary Embolism Present on Admission: No
== END 2022-10-18 16:03 | disposition home or self-care (01) | DRG 683 ==
LOC: ED 09:35 → ICU 14:40 → MEDSUR 10-17 13:41
PROVIDERS: ADMIT Student in an Organized Health Care Education/Training Program; ATTEND Internal Medicine